=== PATIENT | male | born 1980 | race Caucasian/White ===

== ENCOUNTER 2019-06-26 04:20 | Inpatient (IN) ==
[2019-06-26] MEDS ORDERED: ALUM/MAG/SIMETH/LIDO VISC 1:1 30 ML BOTTLE PO STA (04:34)
[2019-06-26] MEDS ORDERED: HYDROmorphone 2 MG/1 ML VIAL IV STA (04:34)
[2019-06-26] MEDS ORDERED: SODIUM CHLORIDE 0.9% 1,000 ML IV STA (04:34)
[2019-06-26] MEDS ORDERED: ONDANSETRON 4 MG/2 ML VIAL IV STA (04:34)
[2019-06-26] MEDS ORDERED: PANTOPRAZOLE 40 MG VIAL IV STA (04:34)
[2019-06-26 05:18] LABS: Basophils # 0.1 10*3/uL (0.0-0.2); Basophils % 0.5 % (0.0-0.8); Eosinophils # 0.1 10*3/uL (0.0-0.87); Eosinophils % 0.7 % (0.00-10.9); Hematocrit 41.3 VOL% (42.0-52.0); Hemoglobin 14.1 GM/DL (14.0-18.0); Immature Granulocytes % 0.1 %; Immature Granulocytes Absolute 0.01 #; Lymphocytes # 3.4 10*3/uL (1.4-4.0); Lymphocytes % 29.6 % (21.2-54.2); Mean Corpuscular HGB Conc 34.1 GM/DL (32-36); Mean Corpuscular Volume 84.5 FL (87-102); Mean Platelet Volume 9.6 FL (9.6-12.0); Monocytes % 7.3 % (1.7-12.7); Neutrophils % 61.8 % (38.7-73.9); Platelet Count 388 T/CUMM (130-400); Red Blood Count 4.89 MC/CUMM (3.8-5.5); Red Cell Distribution Width 14.5 % (9.3-17.3); White Blood Count 11.6 T/CUMM (4-12)
[2019-06-26] MEDS ORDERED: PIPERACILLIN/TAZOBACTAM 3,375 MG in SODIUM CHLORIDE 0.9% 100 ML IV STA (05:35)
[2019-06-26] MEDS ORDERED: ACETAMINOPHEN 325 MG TABLET PO PRN (06:16)
[2019-06-26] MEDS ORDERED: NICOTINE 21 MG/24 HR PATCH TRANSDERM PRN (06:16)
[2019-06-26] MEDS ORDERED: ALUMINUM/MAGNES/SIMETH MAX STR 30 ML UDCUP PO PRN (06:16)
[2019-06-26] MEDS ORDERED: diphenhydrAMINE CAP 25 MG CAPSULE PO PRN (06:16)
[2019-06-26] MEDS ORDERED: GLUCAGON 1 MG VIAL IM PRN (06:16)
[2019-06-26] MEDS ORDERED: guaiFENesin/DM ER 600-30 MG TABLET PO PRN (06:16)
[2019-06-26] MEDS ORDERED: hydrALAZINE 20 MG/1 ML VIAL IV PRN (06:16)
[2019-06-26] MEDS ORDERED: DEXTROSE 10% 250 ML BAG IV PRN (06:26)
[2019-06-26 07:59] LABS: Hepatitis B Core IgM Quant 0.13 Index; Hepatitis B Surface Ag Quant 0.15 Index; Hepatitis B Surface Ag Result Negative (Negative); Hepatitis C Virus Ab Quant 0.13 Index; Hepatitis C Virus Ab Result Negative (Negative)
[2019-06-26] MEDS: SODIUM CHLORIDE 0.9% 1,000 ML IV SCH ×3 (08:15→22:46)
[2019-06-26] MEDS: CIPROFLOXACIN INJ 400 MG in PREMIX 1 EACH IV SCH (08:16)
[2019-06-26 10:05] LABS: Troponin I 0.038 NG/ML (0.00-0.045)
[2019-06-26 10:14] LABS: Albumin 3.3 G/DL (3.4-5.0); Bilirubin,Direct 0.14 MG/DL (0.0-0.20); Bilirubin,Indirect 0.4 MG/DL (0.0-1.0); Bilirubin,Total 0.5 MG/DL (0.2-1.0); Total Protein 6.1 G/DL (6.4-8.3)
[2019-06-26] MEDS: ONDANSETRON 4 MG/2 ML VIAL IV PRN (13:57)
[2019-06-26] MEDS: MORPHINE 4 MG/1 ML VIAL IV PRN (14:00)
[2019-06-26 14:05] LABS: Apearance,Urine Slightly Hazy (Clear); Bilirubin,Urine Negative (Negative); Blood, Urine Negative (Negative); Glucose,Urine (UA) Negative (Negative); Ketones,Urine Negative (Negative); Nitrite,Urine Negative (Negative); Protein,Urine 30 MG/DL; RBC,Urine 1 /HPF (0-4); Urine Color Yellow (Yellow); Urine Specific Gravity 1.024 (1.001-1.035); Urine Urobilinogen < 2.0 EU/DL (0.2-1.0)
[2019-06-26 14:06] LABS: Mucus,Urine Occasional /LPF (Occasional); WBC,Urine 2 /HPF (0-6)
[2019-06-26] MEDS: metroNIDAZOLE INJ 500 MG in PREMIX 1 EACH IV SCH (17:00)
[2019-06-26 18:05] LABS: Albumin 3.1 G/DL (3.4-5.0); Bilirubin,Total 0.5 MG/DL (0.2-1.0); Calcium 8.4 MG/DL (8.5-10.1); Osmolality,Calculated 282.5 MOS/KG (273-304); Total Protein 6.6 G/DL (6.4-8.3)
[2019-06-26 21:12] LABS: Barbiturates Screen,Urine Negative (Negative); Benzodiazepines Screen,Urine Negative (Negative); Cannabinoid Screen,Urine Negative (Negative); Opiate Screen,Urine Positive (Negative); Phencyclidine Screen,Urine Negative (Negative)
[2019-06-27] MEDS: ONDANSETRON 4 MG/2 ML VIAL IV PRN ×4 (01:35→20:38)
[2019-06-27] MEDS: MORPHINE 4 MG/1 ML VIAL IV PRN ×4 (01:35→20:39)
[2019-06-27] MEDS: SODIUM CHLORIDE 0.9% 1,000 ML IV SCH ×4 (04:06→22:35)
[2019-06-27] MEDS: metroNIDAZOLE INJ 500 MG in PREMIX 1 EACH IV SCH ×2 (04:11→17:51)
[2019-06-27] MEDS: CIPROFLOXACIN INJ 400 MG in PREMIX 1 EACH IV SCH ×3 (10:13→22:35)
[2019-06-28] MEDS: MORPHINE 4 MG/1 ML VIAL IV PRN ×3 (03:11→22:54)
[2019-06-28] MEDS: ONDANSETRON 4 MG/2 ML VIAL IV PRN ×2 (03:11→22:56)
[2019-06-28] MEDS: metroNIDAZOLE INJ 500 MG in PREMIX 1 EACH IV SCH ×2 (04:08→16:33)
[2019-06-28] MEDS: SODIUM CHLORIDE 0.9% 1,000 ML IV SCH ×3 (05:33→23:53)
[2019-06-28 06:51] LABS: Basophils % 0.5 % (0.0-0.8); Eosinophils # 0.1 10*3/uL (0.0-0.87); Eosinophils % 0.6 % (0.00-10.9); Hematocrit 42.4 VOL% (42.0-52.0); Hemoglobin 13.6 GM/DL (14.0-18.0); Immature Granulocytes % 0.5 %; Immature Granulocytes Absolute 0.04 #; Lymphocytes # 2.4 10*3/uL (1.4-4.0); Lymphocytes % 27.9 % (21.2-54.2); Mean Corpuscular HGB Conc 32.1 GM/DL (32-36); Mean Corpuscular Volume 89.5 FL (87-102); Mean Platelet Volume 10.2 FL (9.6-12.0); Monocytes % 8.8 % (1.7-12.7); Neutrophils % 61.7 % (38.7-73.9); Platelet Count 383 T/CUMM (130-400); Red Blood Count 4.74 MC/CUMM (3.8-5.5); Red Cell Distribution Width 15.5 % (9.3-17.3); White Blood Count 8.8 T/CUMM (4-12)
[2019-06-28 07:13] LABS: Calcium 8.3 MG/DL (8.5-10.1); Osmolality,Calculated 281.5 MOS/KG (273-304)
[2019-06-28] MEDS: CIPROFLOXACIN INJ 400 MG in PREMIX 1 EACH IV SCH ×2 (12:49→22:54)
[2019-06-28] MEDS ORDERED: FUROSEMIDE 20 MG/2 ML VIAL IV ONE (16:05)
[2019-06-29] MEDS: metroNIDAZOLE INJ 500 MG in PREMIX 1 EACH IV SCH ×2 (04:35→16:20)
[2019-06-29 05:39] LABS: Basophils # 0.1 10*3/uL (0.0-0.2); Basophils % 0.5 % (0.0-0.8); Eosinophils # 0.1 10*3/uL (0.0-0.87); Eosinophils % 0.7 % (0.00-10.9); Hematocrit 43.1 VOL% (42.0-52.0); Hemoglobin 14.1 GM/DL (14.0-18.0); Immature Granulocytes % 0.3 %; Immature Granulocytes Absolute 0.03 #; Lymphocytes # 3.1 10*3/uL (1.4-4.0); Lymphocytes % 31.2 % (21.2-54.2); Mean Corpuscular HGB Conc 32.7 GM/DL (32-36); Mean Corpuscular Volume 87.8 FL (87-102); Monocytes % 11.3 % (1.7-12.7); Platelet Count 392 T/CUMM (130-400); Red Blood Count 4.91 MC/CUMM (3.8-5.5); Red Cell Distribution Width 15.6 % (9.3-17.3); White Blood Count 9.9 T/CUMM (4-12)
[2019-06-29 06:28] LABS: Calcium 8.5 MG/DL (8.5-10.1); Osmolality,Calculated 276.7 MOS/KG (273-304)
[2019-06-29] MEDS: ONDANSETRON 4 MG/2 ML VIAL IV PRN ×2 (09:28→19:31)
[2019-06-29] MEDS: MORPHINE 4 MG/1 ML VIAL IV PRN ×2 (09:30→19:29)
[2019-06-29] MEDS ORDERED: FUROSEMIDE 40 MG/4 ML VIAL IV ONE (13:55)
[2019-06-29] MEDS: CIPROFLOXACIN INJ 400 MG in PREMIX 1 EACH IV SCH (14:00)
[2019-06-29] MEDS: carvediloL 6.25 MG TABLET PO SCH ×2 (14:25→21:12)
[2019-06-29] MEDS: ASPIRIN EC 81 MG TABLET PO SCH (14:25)
[2019-06-29 16:13] LABS: Troponin I < 0.015 NG/ML (0.00-0.045)
[2019-06-29] MEDS: NITROGLYCERIN SL 0.4 MG TABLET SL PRN ×2 (19:15→19:20)
[2019-06-29 20:43] LABS: Troponin I < 0.015 NG/ML (0.00-0.045)
[2019-06-30] MEDS: CIPROFLOXACIN INJ 400 MG in PREMIX 1 EACH IV SCH ×2 (00:23→10:30)
[2019-06-30] MEDS: ONDANSETRON 4 MG/2 ML VIAL IV PRN ×2 (01:30→11:14)
[2019-06-30] MEDS: MORPHINE 4 MG/1 ML VIAL IV PRN (01:43)
[2019-06-30] MEDS ORDERED: ASPIRIN CHEW 81 MG TABLET PO ONE (02:03)
[2019-06-30 02:17] LABS: Basophils # 0.1 10*3/uL (0.0-0.2); Basophils % 0.5 % (0.0-0.8); Eosinophils # 0.1 10*3/uL (0.0-0.87); Eosinophils % 1.1 % (0.00-10.9); Hemoglobin 13.7 GM/DL (14.0-18.0); Immature Granulocytes % 0.2 %; Immature Granulocytes Absolute 0.02 #; Lymphocytes # 2.8 10*3/uL (1.4-4.0); Lymphocytes % 28.8 % (21.2-54.2); Mean Corpuscular HGB Conc 32.6 GM/DL (32-36); Mean Corpuscular Volume 87.5 FL (87-102); Mean Platelet Volume 9.5 FL (9.6-12.0); Monocytes % 10.6 % (1.7-12.7); Neutrophils % 58.8 % (38.7-73.9); Platelet Count 385 T/CUMM (130-400); Red Cell Distribution Width 15.8 % (9.3-17.3); White Blood Count 9.6 T/CUMM (4-12)
[2019-06-30 02:30] LABS: Calcium 8.6 MG/DL (8.5-10.1); Osmolality,Calculated 270.2 MOS/KG (273-304)
[2019-06-30] MEDS ORDERED: FUROSEMIDE 20 MG/2 ML VIAL IV ONE (02:35)
[2019-06-30 02:38] LABS: Risk Ratio 5.43; VLDL CHOLESTEROL 15.8 MG/DL
[2019-06-30] MEDS ORDERED: ENOXAPARIN 40 MG/0.4 ML SYRINGE SUBCUT ONE (03:00)
[2019-06-30] MEDS: metroNIDAZOLE INJ 500 MG in PREMIX 1 EACH IV SCH ×2 (03:51→16:12)
[2019-06-30] MEDS ORDERED: FUROSEMIDE 40 MG/4 ML VIAL IV SCH (09:00)
[2019-06-30] MEDS ORDERED: LOSARTAN 25 MG TABLET PO SCH (09:00)
[2019-06-30] MEDS: PANTOPRAZOLE 40 MG TABLET PO SCH (10:10)
[2019-06-30] MEDS: carvediloL 6.25 MG TABLET PO SCH (10:10)
[2019-06-30] MEDS: ASPIRIN EC 81 MG TABLET PO SCH (10:10)
[2019-06-30] MEDS: ACETAMINOPHEN 325 MG TABLET PO SCH ×2 (11:13→20:36)
[2019-06-30 14:27] LABS: Troponin I < 0.015 NG/ML (0.00-0.045)
[2019-06-30] MEDS: GABAPENTIN 100 MG CAPSULE PO SCH ×2 (16:08→20:36)
[2019-06-30] MEDS: FUROSEMIDE 40 MG/4 ML VIAL IV SCH (16:08)
[2019-06-30] MEDS: ENOXAPARIN 40 MG/0.4 ML SYRINGE SUBCUT SCH (20:36)
[2019-06-30] MEDS: carvediloL 3.125 MG TABLET PO SCH (20:36)
[2019-06-30] MEDS ORDERED: ALUM/MAG/SIMETH/LIDO VISC 1:1 30 ML BOTTLE PO ONE (21:05)
[2019-06-30] MEDS ORDERED: GABAPENTIN 100 MG CAPSULE PO ONE (21:07)
[2019-07-01] MEDS: CIPROFLOXACIN INJ 400 MG in PREMIX 1 EACH IV SCH ×3 (00:16→23:04)
[2019-07-01 00:37] LABS: Troponin I < 0.015 NG/ML (0.00-0.045)
[2019-07-01] MEDS: metroNIDAZOLE INJ 500 MG in PREMIX 1 EACH IV SCH ×2 (05:40→16:47)
[2019-07-01 06:06] LABS: Basophils # 0.1 10*3/uL (0.0-0.2); Basophils % 0.6 % (0.0-0.8); Eosinophils # 0.1 10*3/uL (0.0-0.87); Eosinophils % 1.1 % (0.00-10.9); Hematocrit 41.8 VOL% (42.0-52.0); Hemoglobin 13.7 GM/DL (14.0-18.0); Immature Granulocytes % 0.2 %; Immature Granulocytes Absolute 0.02 #; Lymphocytes # 2.1 10*3/uL (1.4-4.0); Lymphocytes % 25.9 % (21.2-54.2); Mean Corpuscular HGB Conc 32.8 GM/DL (32-36); Mean Corpuscular Volume 87.1 FL (87-102); Mean Platelet Volume 9.7 FL (9.6-12.0); Monocytes % 11.6 % (1.7-12.7); Neutrophils % 60.6 % (38.7-73.9); Platelet Count 367 T/CUMM (130-400); Red Cell Distribution Width 15.5 % (9.3-17.3); White Blood Count 8.2 T/CUMM (4-12)
[2019-07-01 06:21] LABS: Calcium 8.9 MG/DL (8.5-10.1); Osmolality,Calculated 272.1 MOS/KG (273-304)
[2019-07-01 06:25] LABS: Osmolality,Calculated 275.8 MOS/KG (273-304)
[2019-07-01] MEDS: FUROSEMIDE 40 MG/4 ML VIAL IV SCH ×2 (08:39→16:46)
[2019-07-01] MEDS: GABAPENTIN 100 MG CAPSULE PO SCH ×3 (08:39→21:34)
[2019-07-01] MEDS: PANTOPRAZOLE 40 MG TABLET PO SCH (08:40)
[2019-07-01] MEDS: ACETAMINOPHEN 325 MG TABLET PO SCH ×2 (08:40→21:34)
[2019-07-01] MEDS: ASPIRIN EC 81 MG TABLET PO SCH (08:40)
[2019-07-01] MEDS: carvediloL 3.125 MG TABLET PO SCH (08:40)
[2019-07-01] MEDS ORDERED: MAGNESIUM CITRATE 300 ML BOTTLE PO PRN (12:16)
[2019-07-01] MEDS: carvediloL 6.25 MG TABLET PO SCH ×2 (17:40→21:34)
[2019-07-01] MEDS: ENOXAPARIN 40 MG/0.4 ML SYRINGE SUBCUT SCH (21:34)
[2019-07-02] MEDS: metroNIDAZOLE INJ 500 MG in PREMIX 1 EACH IV SCH ×2 (05:20→17:32)
[2019-07-02 06:18] LABS: Basophils # 0.1 10*3/uL (0.0-0.2); Basophils % 0.5 % (0.0-0.8); Eosinophils # 0.1 10*3/uL (0.0-0.87); Eosinophils % 1.3 % (0.00-10.9); Hematocrit 42.8 VOL% (42.0-52.0); Hemoglobin 13.9 GM/DL (14.0-18.0); Immature Granulocytes % 0.3 %; Immature Granulocytes Absolute 0.03 #; Lymphocytes # 2.4 10*3/uL (1.4-4.0); Lymphocytes % 25.6 % (21.2-54.2); Mean Corpuscular HGB Conc 32.5 GM/DL (32-36); Mean Corpuscular Volume 89.2 FL (87-102); Mean Platelet Volume 9.8 FL (9.6-12.0); Monocytes % 12.7 % (1.7-12.7); Neutrophils % 59.6 % (38.7-73.9); Platelet Count 324 T/CUMM (130-400); Red Cell Distribution Width 15.6 % (9.3-17.3); White Blood Count 9.2 T/CUMM (4-12)
[2019-07-02 06:45] LABS: Calcium 8.4 MG/DL (8.5-10.1); Osmolality,Calculated 281.5 MOS/KG (273-304)
[2019-07-02] MEDS: FUROSEMIDE 40 MG/4 ML VIAL IV SCH (08:25)
[2019-07-02] MEDS: PANTOPRAZOLE 40 MG TABLET PO SCH (08:25)
[2019-07-02] MEDS: carvediloL 6.25 MG TABLET PO SCH ×2 (08:25→17:32)
[2019-07-02] MEDS: ASPIRIN EC 81 MG TABLET PO SCH (08:25)
[2019-07-02] MEDS: GABAPENTIN 100 MG CAPSULE PO SCH ×3 (08:25→21:17)
[2019-07-02] MEDS: ACETAMINOPHEN 325 MG TABLET PO SCH ×2 (08:25→21:16)
[2019-07-02] MEDS: CIPROFLOXACIN INJ 400 MG in PREMIX 1 EACH IV SCH (11:59)
[2019-07-02 13:16] LABS: INR 1.2
[2019-07-02 16:50] LABS: Amylase,Body Fluid 19 U/L; LDH,Body Fluid 111 U/L; Triglycerides,Body Fluid < 14 MG/DL
[2019-07-02 17:17] LABS: Lymphocytes,Pleural Fluid 97 %; Neutrophils,Pleural Fluid 3 %; RBC,Pleural Fluid 3183 T/CUMM
[2019-07-02] MEDS: FUROSEMIDE 80 MG TABLET PO SCH (18:14)
[2019-07-02] MEDS: ENOXAPARIN 40 MG/0.4 ML SYRINGE SUBCUT SCH (21:16)
[2019-07-02] MEDS: buPROPion 75 MG TABLET PO SCH (21:16)
[2019-07-03] MEDS: CIPROFLOXACIN INJ 400 MG in PREMIX 1 EACH IV SCH (01:07)
[2019-07-03] MEDS: metroNIDAZOLE INJ 500 MG in PREMIX 1 EACH IV SCH (04:46)
[2019-07-03 04:55] LABS: Calcium 8.8 MG/DL (8.5-10.1); Osmolality,Calculated 271.2 MOS/KG (273-304)
[2019-07-03] MEDS: ACETAMINOPHEN 325 MG TABLET PO SCH (08:54)
[2019-07-03] MEDS: buPROPion 75 MG TABLET PO SCH (08:54)
[2019-07-03] MEDS: ASPIRIN EC 81 MG TABLET PO SCH (08:54)
[2019-07-03] MEDS: carvediloL 6.25 MG TABLET PO SCH ×2 (08:54→09:08)
[2019-07-03] MEDS: GABAPENTIN 100 MG CAPSULE PO SCH (08:55)
[2019-07-03] MEDS: PANTOPRAZOLE 40 MG TABLET PO SCH (08:55)
[2019-07-03] MEDS: FUROSEMIDE 80 MG TABLET PO SCH ×2 (08:55→09:09)
[2019-07-03 09:29] VITALS: BP 104/78
== END 2019-07-03 10:34 | disposition home health service (06) | DRG 292 ==
LOC: SUATTDRO → N.ED 04:20 → N.EDINP 04:20 → SUATTDRO 06:16 → N.EDINP 09:15 → N.2E 10:03
PROVIDERS: ADMIT Internal Medicine; ATTEND Family Medicine

== ENCOUNTER 2019-08-02 00:40 | Inpatient (IN) ==
[2019-08-02] MEDS ORDERED: ASPIRIN 325 MG TABLET PO STA (01:25)
[2019-08-02] MEDS ORDERED: ONDANSETRON 4 MG/2 ML VIAL IV STA (01:25)
[2019-08-02] MEDS ORDERED: ALUM/MAG/SIMETH/LIDO VISC 1:1 30 ML BOTTLE PO STA (01:25)
[2019-08-02] MEDS ORDERED: FUROSEMIDE 40 MG/4 ML VIAL IV STA (01:25)
[2019-08-02] MEDS ORDERED: NITROGLYCERIN 2% OINT 1 INCH/GM PACK TOP STA (01:25)
[2019-08-02 01:44] LABS: Basophils # 0.1 10*3/uL (0.0-0.2); Basophils % 0.7 % (0.0-0.8); Eosinophils # 0.1 10*3/uL (0.0-0.87); Eosinophils % 1.1 % (0.00-10.9); Hemoglobin 16.4 GM/DL (14.0-18.0); Immature Granulocytes % 0.4 %; Immature Granulocytes Absolute 0.05 #; Lymphocytes # 3.2 10*3/uL (1.4-4.0); Lymphocytes % 26.6 % (21.2-54.2); Mean Corpuscular HGB Conc 31.5 GM/DL (32-36); Mean Platelet Volume 9.5 FL (9.6-12.0); Monocytes % 9.1 % (1.7-12.7); Neutrophils % 62.1 % (38.7-73.9); Platelet Count 350 T/CUMM (130-400); Red Blood Count 5.84 MC/CUMM (3.8-5.5); Red Cell Distribution Width 15.1 % (9.3-17.3); White Blood Count 12.2 T/CUMM (4-12)
[2019-08-02 01:57] LABS: Calcium 9.4 MG/DL (8.5-10.1); Osmolality,Calculated 279.7 MOS/KG (273-304); Total Protein 8.3 G/DL (6.4-8.3)
[2019-08-02] MEDS ORDERED: FUROSEMIDE 20 MG/2 ML VIAL IM STA (02:01)
[2019-08-02] MEDS ORDERED: FUROSEMIDE 20 MG/2 ML VIAL IV STA (02:02)
[2019-08-02] MEDS ORDERED: ENOXAPARIN 100 MG/ML SYRINGE SUBCUT STA (02:16)
[2019-08-02 02:30] LABS: Apearance,Urine CLEAR (Clear); Bilirubin,Urine Negative (Negative); Blood, Urine Negative (Negative); Glucose,Urine (UA) Negative (Negative); Hyaline Casts,Urine 4 /LPF (0-3); Ketones,Urine Negative (Negative); Mucus,Urine Few /LPF (Occasional); Nitrite,Urine Negative (Negative); Protein,Urine 30 MG/DL; RBC,Urine <1 /HPF (0-4); Urine Color Amber (Yellow); Urine Specific Gravity 1.021 (1.001-1.035); WBC,Urine 1 /HPF (0-6)
[2019-08-02] MEDS ORDERED: PROMETHAZINE 25 MG/1 ML VIAL ONE (03:10)
[2019-08-02] MEDS ORDERED: PROMETHAZINE 25 MG/1 ML VIAL IM STA (03:17)
[2019-08-02 03:21] LABS: Barbiturates Screen,Urine Negative (Negative); Benzodiazepines Screen,Urine Negative (Negative); Cannabinoid Screen,Urine Positive (Negative); Opiate Screen,Urine Negative (Negative); Phencyclidine Screen,Urine Negative (Negative)
[2019-08-02] MEDS ORDERED: DOCUSATE SODIUM 100 MG CAPSULE PO PRN (05:48)
[2019-08-02] MEDS ORDERED: NICOTINE 21 MG/24 HR PATCH TRANSDERM PRN (05:48)
[2019-08-02] MEDS ORDERED: PROMETHAZINE 25 MG/1 ML VIAL IM PRN (05:48)
[2019-08-02] MEDS ORDERED: ACETAMINOPHEN 325 MG TABLET PO PRN (05:48)
[2019-08-02] MEDS: ONDANSETRON 4 MG/2 ML VIAL IV PRN ×2 (05:57→17:29)
[2019-08-02] MEDS ORDERED: ASPIRIN EC 81 MG TABLET PO SCH (09:00)
[2019-08-02 09:12] LABS: INR 1.1; PT Patient Result 12.1 SECS (9.8-11.9)
[2019-08-02] MEDS: FUROSEMIDE 40 MG/4 ML VIAL IV SCH ×2 (09:37→15:35)
[2019-08-02] MEDS: PANTOPRAZOLE 40 MG TABLET PO SCH (09:38)
[2019-08-02] MEDS: buPROPion 75 MG TABLET PO SCH ×2 (10:12→21:33)
[2019-08-02 11:51] LABS: ABG Base Excess 0.4 MMOL/L (-2.5-2.5); ABG HCO3 24.2 MMOL/L (20-26); ABG Oxygen Saturation 74.1 % (95-100); ABG PCO2 37.7 MM HG (35-48); ABG PH 7.422 (7.35-7.45); ABG PO2 41.5 MM HG (80-95); ABG TCO2 20.8 MMOL/L (23-27)
[2019-08-02] MEDS ORDERED: BISOPROLOL 5 MG TABLET PO SCH (12:08)
[2019-08-02] MEDS: BISOPROLOL 5 MG TABLET PO SCH ×2 (15:35→21:33)
[2019-08-03] MEDS: ONDANSETRON 4 MG/2 ML VIAL IV PRN ×2 (05:55→08:33)
[2019-08-03 06:42] LABS: Basophils # 0.1 10*3/uL (0.0-0.2); Basophils % 0.4 % (0.0-0.8); Eosinophils % 0.1 % (0.00-10.9); Hematocrit 53.2 VOL% (42.0-52.0); Hemoglobin 17.1 GM/DL (14.0-18.0); Immature Granulocytes % 0.3 %; Immature Granulocytes Absolute 0.04 #; Lymphocytes # 2.7 10*3/uL (1.4-4.0); Lymphocytes % 18.4 % (21.2-54.2); Mean Corpuscular HGB Conc 32.1 GM/DL (32-36); Mean Corpuscular Volume 87.5 FL (87-102); Monocytes % 9.7 % (1.7-12.7); Neutrophils % 71.1 % (38.7-73.9); Platelet Count 234 T/CUMM (130-400); Red Blood Count 6.08 MC/CUMM (3.8-5.5); Red Cell Distribution Width 15.5 % (9.3-17.3); White Blood Count 14.5 T/CUMM (4-12)
[2019-08-03] MEDS: buPROPion 75 MG TABLET PO SCH ×2 (08:33→21:32)
[2019-08-03] MEDS: ASPIRIN EC 81 MG TABLET PO SCH (08:33)
[2019-08-03] MEDS: PANTOPRAZOLE 40 MG TABLET PO SCH (08:34)
[2019-08-03] MEDS: BISOPROLOL 5 MG TABLET PO SCH ×3 (08:34→21:32)
[2019-08-03] MEDS: FUROSEMIDE 40 MG/4 ML VIAL IV SCH (08:35)
[2019-08-03] MEDS: ENOXAPARIN 40 MG/0.4 ML SYRINGE SUBCUT SCH (08:35)
[2019-08-03 09:36] LABS: Calcium 9.7 MG/DL (8.5-10.1); Osmolality,Calculated 275.5 MOS/KG (273-304)
[2019-08-03] MEDS: SODIUM CHLORIDE 0.45% 1,000 ML IV SCH (12:16)
[2019-08-03] MEDS: SUCRALFATE 1 GM/10 ML UDCUP PO SCH ×3 (12:16→21:32)
[2019-08-03 15:12] LABS: Calcium 9.6 MG/DL (8.5-10.1); Osmolality,Calculated 270.8 MOS/KG (273-304)
[2019-08-04 03:46] LABS: Basophils # 0.1 10*3/uL (0.0-0.2); Basophils % 0.5 % (0.0-0.8); Eosinophils % 0.3 % (0.00-10.9); Hematocrit 45.2 VOL% (42.0-52.0); Hemoglobin 14.9 GM/DL (14.0-18.0); Immature Granulocytes % 0.2 %; Immature Granulocytes Absolute 0.02 #; Lymphocytes # 2.7 10*3/uL (1.4-4.0); Lymphocytes % 27.2 % (21.2-54.2); Mean Platelet Volume 10.4 FL (9.6-12.0); Monocytes % 11.3 % (1.7-12.7); Neutrophils % 60.5 % (38.7-73.9); Platelet Count 282 T/CUMM (130-400); Red Blood Count 5.32 MC/CUMM (3.8-5.5); Red Cell Distribution Width 14.8 % (9.3-17.3); White Blood Count 9.9 T/CUMM (4-12)
[2019-08-04 04:01] LABS: Osmolality,Calculated 275.4 MOS/KG (273-304)
[2019-08-04 04:05] LABS: Albumin 3.4 G/DL (3.4-5.0); Bilirubin,Direct 0.68 MG/DL (0.0-0.20); Bilirubin,Indirect 2.2 MG/DL (0.0-1.0); Bilirubin,Total 2.9 MG/DL (0.2-1.0); Total Protein 6.9 G/DL (6.4-8.3)
[2019-08-04] MEDS: ASPIRIN EC 81 MG TABLET PO SCH (09:21)
[2019-08-04] MEDS: SODIUM CHLORIDE 0.45% 1,000 ML IV SCH (09:21)
[2019-08-04] MEDS: PANTOPRAZOLE 40 MG TABLET PO SCH (09:21)
[2019-08-04] MEDS: SUCRALFATE 1 GM/10 ML UDCUP PO SCH ×4 (09:22→21:02)
[2019-08-04] MEDS: BISOPROLOL 5 MG TABLET PO SCH (09:22)
[2019-08-04] MEDS: buPROPion 75 MG TABLET PO SCH ×2 (09:22→21:02)
[2019-08-04] MEDS: ENOXAPARIN 40 MG/0.4 ML SYRINGE SUBCUT SCH (09:23)
[2019-08-04] MEDS: cefTRIAXone 2,000 MG in SYRINGE 1 EACH IV SCH (14:54)
[2019-08-04] MEDS: ONDANSETRON 4 MG/2 ML VIAL IV PRN (22:10)
[2019-08-05] MEDS ORDERED: PROMETHAZINE INJ 12.5 MG in SODIUM CHLORIDE 0.9% 50 ML IV ONE (00:29)
[2019-08-05 06:29] LABS: Basophils % 0.4 % (0.0-0.8); Eosinophils % 0.1 % (0.00-10.9); Hemoglobin 14.5 GM/DL (14.0-18.0); Immature Granulocytes % 0.4 %; Immature Granulocytes Absolute 0.04 #; Lymphocytes # 2.2 10*3/uL (1.4-4.0); Lymphocytes % 20.4 % (21.2-54.2); Mean Corpuscular HGB Conc 32.2 GM/DL (32-36); Mean Platelet Volume 10.2 FL (9.6-12.0); Monocytes % 9.5 % (1.7-12.7); Neutrophils % 69.2 % (38.7-73.9); Platelet Count 298 T/CUMM (130-400); Red Blood Count 5.17 MC/CUMM (3.8-5.5); Red Cell Distribution Width 15.1 % (9.3-17.3); White Blood Count 10.8 T/CUMM (4-12)
[2019-08-05 06:42] LABS: Osmolality,Calculated 268.8 MOS/KG (273-304)
[2019-08-05] MEDS: BISOPROLOL 5 MG TABLET PO SCH (09:01)
[2019-08-05] MEDS: SUCRALFATE 1 GM/10 ML UDCUP PO SCH ×4 (09:01→20:53)
[2019-08-05] MEDS: ASPIRIN EC 81 MG TABLET PO SCH (09:02)
[2019-08-05] MEDS: buPROPion 75 MG TABLET PO SCH ×2 (09:02→20:53)
[2019-08-05] MEDS: PANTOPRAZOLE 40 MG TABLET PO SCH (09:02)
[2019-08-05] MEDS: ENOXAPARIN 40 MG/0.4 ML SYRINGE SUBCUT SCH (09:04)
[2019-08-05] MEDS: cefTRIAXone 2,000 MG in SYRINGE 1 EACH IV SCH (12:14)
[2019-08-06 05:25] LABS: Basophils # 0.1 10*3/uL (0.0-0.2); Basophils % 0.5 % (0.0-0.8); Eosinophils % 0.4 % (0.00-10.9); Hematocrit 46.6 VOL% (42.0-52.0); Hemoglobin 15.3 GM/DL (14.0-18.0); Immature Granulocytes % 0.3 %; Immature Granulocytes Absolute 0.03 #; Lymphocytes # 2.5 10*3/uL (1.4-4.0); Lymphocytes % 25.6 % (21.2-54.2); Mean Corpuscular HGB Conc 32.8 GM/DL (32-36); Mean Corpuscular Volume 86.1 FL (87-102); Mean Platelet Volume 10.3 FL (9.6-12.0); Monocytes % 10.2 % (1.7-12.7); Platelet Count 281 T/CUMM (130-400); Red Blood Count 5.41 MC/CUMM (3.8-5.5); Red Cell Distribution Width 15.9 % (9.3-17.3); White Blood Count 9.8 T/CUMM (4-12)
[2019-08-06 05:44] LABS: Osmolality,Calculated 275.2 MOS/KG (273-304)
[2019-08-06 06:36] LABS: Hepatitis B Core IgM Quant 0.17 Index; Hepatitis B Surface Ag Quant 0.39 Index; Hepatitis B Surface Ag Result Negative (Negative); Hepatitis C Virus Ab Quant 0.13 Index; Hepatitis C Virus Ab Result Negative (Negative)
[2019-08-06] MEDS: SUCRALFATE 1 GM/10 ML UDCUP PO SCH ×2 (07:38→10:55)
[2019-08-06] MEDS: LACTATED RINGERS 1,000 ML IV SCH ×2 (07:39→09:42)
[2019-08-06] MEDS: ENOXAPARIN 40 MG/0.4 ML SYRINGE SUBCUT SCH (08:29)
[2019-08-06] MEDS: PANTOPRAZOLE 40 MG TABLET PO SCH (08:30)
[2019-08-06] MEDS: buPROPion 75 MG TABLET PO SCH (08:30)
[2019-08-06] MEDS: BISOPROLOL 5 MG TABLET PO SCH ×2 (08:30→13:51)
[2019-08-06] MEDS ORDERED: propofoL 200 MG/20 ML VIAL IV ONE (09:00)
[2019-08-06] MEDS ORDERED: LIDOCAINE 2% 5 ML VIAL ONE (09:00)
[2019-08-06 09:24] VITALS: BP 111/86
[2019-08-06] MEDS: cefTRIAXone 2,000 MG in SYRINGE 1 EACH IV SCH (11:38)
[2019-08-06] MEDS ORDERED: FUROSEMIDE 40 MG/4 ML VIAL IV ONE (12:45)
[2019-08-06] MEDS: ONDANSETRON 4 MG/2 ML VIAL IV PRN (13:26)
== END 2019-08-06 15:05 | disposition home or self-care (01) | DRG 291 ==
LOC: N.ED 00:40 → N.EDINP 03:19 → SUATTDRO 03:19 → N.TELEN 14:51
PROVIDERS: ADMIT Family Medicine; ATTEND Internal Medicine

== ENCOUNTER 2019-10-16 20:42 | Inpatient (IN) ==
[2019-10-16 21:39] LABS: Basophils # 0.1 10*3/uL (0.0-0.2); Basophils % 0.7 % (0.0-0.8); Eosinophils % 0.2 % (0.00-10.9); Hematocrit 45.5 VOL% (42.0-52.0); Hemoglobin 15.2 GM/DL (14.0-18.0); Immature Granulocytes % 0.2 %; Immature Granulocytes Absolute 0.02 #; Lymphocytes # 2.7 10*3/uL (1.4-4.0); Lymphocytes % 27.1 % (21.2-54.2); Mean Corpuscular HGB Conc 33.4 GM/DL (32-36); Mean Corpuscular Volume 82.7 FL (87-102); Mean Platelet Volume 9.3 FL (9.6-12.0); Monocytes % 10.3 % (1.7-12.7); Neutrophils % 61.5 % (38.7-73.9); Platelet Count 307 T/CUMM (130-400); White Blood Count 10.1 T/CUMM (4-12)
[2019-10-16] MEDS ORDERED: ONDANSETRON 4 MG/2 ML VIAL IV STA (21:47)
[2019-10-16 22:04] LABS: Alanine Aminotransferase 57 U/L (16-61); Albumin 4.1 G/DL (3.4-5.0); Alkaline Phosphatase 127 U/L (45-117); Amylase 120 U/L (25-115); Aspartate Amino Transferase 67 U/L (0-37); Blood Urea Nitrogen 20 MG/DL (7-18); Calcium 9.7 MG/DL (8.5-10.1); Estimated Glom Filtration Rate 43 ML/MIN; Glucose 132 MG/DL (74-106); Osmolality,Calculated 268.5 MOS/KG (273-304); Total Protein 8.2 G/DL (6.4-8.3); Troponin I < 0.015 NG/ML (0.00-0.045)
[2019-10-16] MEDS ORDERED: SODIUM CHLORIDE 0.9% 1,000 ML IV STA (22:17)
[2019-10-16 22:20] LABS: INR 1.4; PT Patient Result 14.7 SECS (9.8-11.9)
[2019-10-16] MEDS ORDERED: PANTOPRAZOLE 40 MG VIAL IV STA (22:20)
[2019-10-16] MEDS ORDERED: METOCLOPRAMIDE 10 MG/2 ML VIAL IV STA (22:20)
[2019-10-16 22:42] LABS: Apearance,Urine Slightly Hazy (Clear); Blood, Urine Negative (Negative); Glucose,Urine (UA) Negative (Negative); Hyaline Casts,Urine 162 /LPF (0-3); Ketones,Urine Negative (Negative); Mucus,Urine Occasional /LPF (Occasional); Nitrite,Urine Negative (Negative); Protein,Urine 30 MG/DL; RBC,Urine 5 /HPF (0-4); Urine Color Amber (Yellow); Urine Specific Gravity 1.017 (1.001-1.035)
[2019-10-16 22:44] LABS: Barbiturates Screen,Urine Negative (Negative); Benzodiazepines Screen,Urine Negative (Negative); Cannabinoid Screen,Urine Positive (Negative); Opiate Screen,Urine Negative (Negative); Phencyclidine Screen,Urine Negative (Negative)
[2019-10-16 23:02] LABS: Bilirubin,Urine Small mg/dL (Negative)
[2019-10-16] MEDS ORDERED: DEXTROSE 50% 25 GM/50 ML VIAL IV PRN (23:31)
[2019-10-16] MEDS ORDERED: diphenhydrAMINE CAP 25 MG CAPSULE PO PRN (23:31)
[2019-10-16] MEDS ORDERED: ZALEPLON 5 MG CAPSULE PO PRN (23:31)
[2019-10-16] MEDS ORDERED: NICOTINE 21 MG/24 HR PATCH TRANSDERM PRN (23:31)
[2019-10-16] MEDS ORDERED: GLUCAGON 1 MG VIAL IM PRN (23:31)
[2019-10-16] MEDS ORDERED: PROMETHAZINE 25 MG/1 ML VIAL IM PRN (23:31)
[2019-10-16] MEDS ORDERED: hydrALAZINE 20 MG/1 ML VIAL IV PRN (23:31)
[2019-10-16] MEDS ORDERED: guaiFENesin/DM ER 600-30 MG TABLET PO PRN (23:31)
[2019-10-16] MEDS ORDERED: SIMETHICONE CHEW 125 MG TABLET PO PRN (23:31)
[2019-10-16] MEDS ORDERED: ALUMINUM/MAGNES/SIMETH MAX STR 30 ML UDCUP PO PRN (23:31)
[2019-10-16] MEDS ORDERED: VANCOMYCIN INJ 1,000 MG in SODIUM CHLORIDE 0.9% 250 ML IV PRN (23:39)
[2019-10-17] MEDS ORDERED: VANCOMYCIN INJ 1,500 MG in SODIUM CHLORIDE 0.9% 500 ML IV ONE
[2019-10-17] MEDS: MORPHINE 4 MG/1 ML VIAL IV PRN ×3 (01:33→20:31)
[2019-10-17 01:46] LABS: Basophils # 0.1 10*3/uL (0.0-0.2); Basophils % 0.6 % (0.0-0.8); Eosinophils % 0.3 % (0.00-10.9); Hematocrit 44.2 VOL% (42.0-52.0); Hemoglobin 14.6 GM/DL (14.0-18.0); Immature Granulocytes % 0.3 %; Immature Granulocytes Absolute 0.03 #; Lymphocytes # 3.1 10*3/uL (1.4-4.0); Lymphocytes % 33.2 % (21.2-54.2); Mean Corpuscular Volume 82.2 FL (87-102); Mean Platelet Volume 9.3 FL (9.6-12.0); Monocytes % 9.6 % (1.7-12.7); Platelet Count 285 T/CUMM (130-400); Red Blood Count 5.38 MC/CUMM (3.8-5.5); Red Cell Distribution Width 18.6 % (9.3-17.3); White Blood Count 9.4 T/CUMM (4-12)
[2019-10-17] MEDS: PIPERACILLIN/TAZOBACTAM 3,375 MG in SODIUM CHLORIDE 0.9% 100 ML IV SCH ×4 (01:53→17:45)
[2019-10-17 02:26] LABS: Albumin 3.7 G/DL (3.4-5.0); Bilirubin,Total 3.1 MG/DL (0.2-1.0); Calcium 9.2 MG/DL (8.5-10.1); Osmolality,Calculated 264.7 MOS/KG (273-304); Total Protein 7.7 G/DL (6.4-8.3)
[2019-10-17] MEDS: PANTOPRAZOLE 40 MG VIAL IV SCH ×2 (09:04→20:30)
[2019-10-17] MEDS: DOCUSATE SODIUM 100 MG CAPSULE PO SCH ×2 (09:05→20:31)
[2019-10-17] MEDS: ENOXAPARIN 40 MG/0.4 ML SYRINGE SUBCUT SCH (09:05)
[2019-10-17] MEDS: FUROSEMIDE 100 MG/10 ML VIAL IV SCH ×3 (11:01→23:35)
[2019-10-17] MEDS: BISOPROLOL 5 MG TABLET PO SCH (13:02)
[2019-10-17] MEDS: ONDANSETRON 4 MG/2 ML VIAL IV PRN (20:31)
[2019-10-17] MEDS ORDERED: VANCOMYCIN INJ 1,250 MG in SODIUM CHLORIDE 0.9% 250 ML IV SCH (23:00)
[2019-10-18] MEDS: ONDANSETRON 4 MG/2 ML VIAL IV PRN ×4 (02:39→22:12)
[2019-10-18] MEDS: PIPERACILLIN/TAZOBACTAM 3,375 MG in SODIUM CHLORIDE 0.9% 100 ML IV SCH ×3 (02:39→17:58)
[2019-10-18] MEDS: MORPHINE 4 MG/1 ML VIAL IV PRN ×4 (02:57→22:23)
[2019-10-18 05:38] LABS: Basophils # 0.1 10*3/uL (0.0-0.2); Basophils % 0.7 % (0.0-0.8); Eosinophils % 0.2 % (0.00-10.9); Hematocrit 42.2 VOL% (42.0-52.0); Hemoglobin 13.9 GM/DL (14.0-18.0); Immature Granulocytes % 0.5 %; Immature Granulocytes Absolute 0.04 #; Lymphocytes # 2.5 10*3/uL (1.4-4.0); Lymphocytes % 28.6 % (21.2-54.2); Mean Corpuscular HGB Conc 32.9 GM/DL (32-36); Mean Corpuscular Volume 82.4 FL (87-102); Mean Platelet Volume 9.7 FL (9.6-12.0); Monocytes % 11.1 % (1.7-12.7); Neutrophils % 58.9 % (38.7-73.9); Platelet Count 286 T/CUMM (130-400); Red Blood Count 5.12 MC/CUMM (3.8-5.5); White Blood Count 8.7 T/CUMM (4-12)
[2019-10-18 05:51] LABS: Calcium 9.6 MG/DL (8.5-10.1); Osmolality,Calculated 270.4 MOS/KG (273-304)
[2019-10-18] MEDS ORDERED: FUROSEMIDE 40 MG/4 ML VIAL IV SCH (07:26)
[2019-10-18] MEDS: ENOXAPARIN 40 MG/0.4 ML SYRINGE SUBCUT SCH (09:39)
[2019-10-18] MEDS: BISOPROLOL 5 MG TABLET PO SCH (09:55)
[2019-10-18] MEDS: DOCUSATE SODIUM 100 MG CAPSULE PO SCH ×2 (09:55→21:39)
[2019-10-18] MEDS: PANTOPRAZOLE 40 MG VIAL IV SCH ×2 (10:37→21:39)
[2019-10-18] MEDS: GABAPENTIN 100 MG CAPSULE PO SCH ×2 (15:05→22:23)
[2019-10-18] MEDS: FUROSEMIDE 40 MG TABLET PO SCH (15:05)
[2019-10-19] MEDS: PIPERACILLIN/TAZOBACTAM 3,375 MG in SODIUM CHLORIDE 0.9% 100 ML IV SCH ×2 (02:11→09:48)
[2019-10-19] MEDS ORDERED: FUROSEMIDE 20 MG/2 ML VIAL IV ONE (02:30)
[2019-10-19] MEDS: MORPHINE 4 MG/1 ML VIAL IV PRN (04:55)
[2019-10-19] MEDS: ONDANSETRON 4 MG/2 ML VIAL IV PRN ×2 (04:57→09:48)
[2019-10-19 05:23] LABS: Basophils # 0.1 10*3/uL (0.0-0.2); Basophils % 0.6 % (0.0-0.8); Eosinophils % 0.4 % (0.00-10.9); Hematocrit 44.6 VOL% (42.0-52.0); Hemoglobin 14.6 GM/DL (14.0-18.0); Immature Granulocytes % 0.4 %; Immature Granulocytes Absolute 0.04 #; Lymphocytes # 2.5 10*3/uL (1.4-4.0); Lymphocytes % 26.5 % (21.2-54.2); Mean Corpuscular HGB Conc 32.7 GM/DL (32-36); Mean Corpuscular Volume 83.1 FL (87-102); Mean Platelet Volume 9.6 FL (9.6-12.0); Monocytes % 10.8 % (1.7-12.7); Neutrophils % 61.3 % (38.7-73.9); Platelet Count 322 T/CUMM (130-400); Red Blood Count 5.37 MC/CUMM (3.8-5.5); Red Cell Distribution Width 19.6 % (9.3-17.3); White Blood Count 9.6 T/CUMM (4-12)
[2019-10-19] MEDS: ENOXAPARIN 40 MG/0.4 ML SYRINGE SUBCUT SCH (08:31)
[2019-10-19] MEDS: FUROSEMIDE 40 MG TABLET PO SCH (08:32)
[2019-10-19] MEDS: DOCUSATE SODIUM 100 MG CAPSULE PO SCH ×2 (08:32→20:19)
[2019-10-19] MEDS: PANTOPRAZOLE 40 MG VIAL IV SCH (08:33)
[2019-10-19] MEDS: GABAPENTIN 100 MG CAPSULE PO SCH ×3 (08:33→20:19)
[2019-10-19] MEDS: BISOPROLOL 5 MG TABLET PO SCH (08:43)
[2019-10-19] MEDS ORDERED: ONDANSETRON 4 MG TABLET PO PRN (15:26)
[2019-10-19] MEDS: traMADol 50 MG TABLET PO PRN (16:46)
[2019-10-19] MEDS: cefTRIAXone 1,000 MG in SYRINGE 1 EACH IV SCH (16:47)
[2019-10-19] MEDS: FUROSEMIDE 40 MG/4 ML VIAL IV SCH (16:47)
[2019-10-19] MEDS ORDERED: ENOXAPARIN 40 MG/0.4 ML SYRINGE SUBCUT SCH (20:00)
[2019-10-20] MEDS: FUROSEMIDE 40 MG/4 ML VIAL IV SCH ×2 (07:55→16:55)
[2019-10-20] MEDS: AZITHROMYCIN 250 MG TABLET PO SCH (09:30)
[2019-10-20] MEDS: GABAPENTIN 100 MG CAPSULE PO SCH ×3 (09:35→21:02)
[2019-10-20] MEDS: BISOPROLOL 5 MG TABLET PO SCH (09:58)
[2019-10-20] MEDS: PANTOPRAZOLE 40 MG TABLET PO SCH (10:03)
[2019-10-20] MEDS: DOCUSATE SODIUM 100 MG CAPSULE PO SCH ×2 (10:04→21:02)
[2019-10-20] MEDS: ENOXAPARIN 40 MG/0.4 ML SYRINGE SUBCUT SCH (10:08)
[2019-10-20] MEDS: cefTRIAXone 1,000 MG in SYRINGE 1 EACH IV SCH (16:56)
[2019-10-20] MEDS ORDERED: APIXABAN 5 MG TABLET PO SCH (18:00)
[2019-10-21] MEDS: traMADol 50 MG TABLET PO PRN (04:23)
[2019-10-21] MEDS: PANTOPRAZOLE 40 MG TABLET PO SCH (09:17)
[2019-10-21] MEDS: AZITHROMYCIN 250 MG TABLET PO SCH (09:17)
[2019-10-21] MEDS: FUROSEMIDE 40 MG/4 ML VIAL IV SCH ×2 (09:17→15:12)
[2019-10-21] MEDS: GABAPENTIN 100 MG CAPSULE PO SCH ×2 (09:17→15:11)
[2019-10-21] MEDS: ENOXAPARIN 40 MG/0.4 ML SYRINGE SUBCUT SCH (09:18)
[2019-10-21] MEDS: ONDANSETRON 4 MG/2 ML VIAL IV PRN (09:18)
[2019-10-21] MEDS: DOCUSATE SODIUM 100 MG CAPSULE PO SCH (09:20)
[2019-10-21] MEDS: cefTRIAXone 1,000 MG in SYRINGE 1 EACH IV SCH (15:12)
[2019-10-21 16:25] VITALS: BP 110/74
== END 2019-10-21 16:35 | disposition home or self-care (01) | DRG 291 ==
LOC: N.ED 20:42 → N.EDINP 23:32 → SUATTDRO 23:32 → N.TELEN 10-17 00:45
PROVIDERS: ADMIT Internal Medicine; ATTEND Internal Medicine

== ENCOUNTER 2020-04-22 00:10 | Inpatient (IN) ==
[2020-04-22 00:39] LABS: Basophils % 0.1 % (0.0-0.8); Hemoglobin 14.1 GM/DL (14.0-18.0); Immature Granulocytes % 1.3 %; Immature Granulocytes Absolute 0.19 #; Lymphocytes # 2.5 10*3/uL (1.4-4.0); Lymphocytes % 16.4 % (21.2-54.2); Mean Corpuscular HGB Conc 33.6 GM/DL (32-36); Mean Platelet Volume 9.6 FL (9.6-12.0); Monocytes % 6.1 % (1.7-12.7); Neutrophils % 76.1 % (38.7-73.9); Platelet Count 386 T/CUMM (130-400); Red Blood Count 4.83 MC/CUMM (3.8-5.5); Red Cell Distribution Width 13.8 % (9.3-17.3); White Blood Count 15.2 T/CUMM (4-12)
[2020-04-22] MEDS ORDERED: methylPREDNISolone SOD SUC 125 MG/2 ML VIAL IV STA (00:40)
[2020-04-22] MEDS ORDERED: FUROSEMIDE 40 MG/4 ML VIAL IV STA (00:40)
[2020-04-22] MEDS ORDERED: ONDANSETRON 4 MG/2 ML VIAL IV STA (00:40)
[2020-04-22 00:53] LABS: Amylase 265 U/L (25-115)
[2020-04-22 00:53] LABS: Albumin 3.7 G/DL (3.4-5.0); Bilirubin,Total 1.3 MG/DL (0.2-1.0); Calcium 9.2 MG/DL (8.5-10.1); Osmolality,Calculated 278.4 MOS/KG (273-304); Potassium 3.7 MMOL/L (3.5-5.1); Total Protein 7.9 G/DL (5.0-7.5)
[2020-04-22] MEDS ORDERED: ALBUTEROL NEB SOLN 5 MG/ML 20 ML/BOTTLE CONT NEB SCH (01:00)
[2020-04-22 01:22] LABS: INR 1.2; PT Patient Result 12.7 SECS (9.8-11.9)
[2020-04-22] MEDS ORDERED: PIPERACILLIN/TAZOBACTAM 3,375 MG in SODIUM CHLORIDE 0.9% 100 ML IV STA (01:39)
[2020-04-22 01:44] LABS: Barbiturates Screen,Urine Negative (Negative); Benzodiazepines Screen,Urine Negative (Negative); Cannabinoid Screen,Urine Positive (Negative); Opiate Screen,Urine Positive (Negative); Phencyclidine Screen,Urine Negative (Negative)
[2020-04-22 01:49] LABS: Bilirubin,Urine Negative (Negative); Blood, Urine Negative (Negative); Glucose,Urine (UA) Negative (Negative); Hyaline Casts,Urine 1 /LPF (0-3); Ketones,Urine Negative (Negative); Nitrite,Urine Negative (Negative); Protein,Urine Negative; RBC,Urine 2 /HPF (0-4); Urine Appearance CLEAR (Clear); Urine Color Yellow (Yellow); Urine Specific Gravity 1.017 (1.001-1.035); WBC,Urine 1 /HPF (0-6)
[2020-04-22] MEDS ORDERED: MAGNESIUM SULF RIDER 4 GM in PREMIX 1 EACH IV PRN (02:26)
[2020-04-22] MEDS ORDERED: MAGNESIUM SULF RIDER 2 GM in PREMIX 1 EACH IV PRN (02:26)
[2020-04-22] MEDS ORDERED: GLUCAGON 1 MG VIAL IM PRN (02:26)
[2020-04-22] MEDS ORDERED: DEXTROSE 50% 25 GM/50 ML VIAL IV PRN (02:26)
[2020-04-22] MEDS: ENOXAPARIN 40 MG/0.4 ML SYRINGE SUBCUT SCH (02:54)
[2020-04-22 06:38] LABS: Basophils % 0.1 % (0.0-0.8); Hematocrit 43.1 VOL% (42.0-52.0); Immature Granulocytes % 0.3 %; Immature Granulocytes Absolute 0.03 #; Lymphocytes # 1.1 10*3/uL (1.4-4.0); Lymphocytes % 9.8 % (21.2-54.2); Mean Corpuscular HGB Conc 32.5 GM/DL (32-36); Mean Corpuscular Volume 87.2 FL (87-102); Mean Platelet Volume 9.5 FL (9.6-12.0); Monocytes % 1.2 % (1.7-12.7); Neutrophils % 88.6 % (38.7-73.9); Platelet Count 379 T/CUMM (130-400); Red Blood Count 4.94 MC/CUMM (3.8-5.5); Red Cell Distribution Width 14.1 % (9.3-17.3); White Blood Count 11.5 T/CUMM (4-12)
[2020-04-22 07:00] LABS: Albumin 3.7 G/DL (3.4-5.0); Bilirubin,Total 1.6 MG/DL (0.2-1.0); Calcium 9.4 MG/DL (8.5-10.1); Osmolality,Calculated 278.2 MOS/KG (273-304); Potassium 4.2 MMOL/L (3.5-5.1); Risk Ratio 5.27; Total Protein 7.6 G/DL (5.0-7.5); VLDL CHOLESTEROL 18.8 MG/DL
[2020-04-22] MEDS: INSULIN REGULAR 100 UNIT/ML SUBCUT SCH ×4 (08:00→20:15)
[2020-04-22] MEDS: carvediloL 6.25 MG TABLET PO SCH ×2 (08:07→16:24)
[2020-04-22] MEDS: FUROSEMIDE 40 MG/4 ML VIAL IV SCH ×2 (08:07→16:25)
[2020-04-22] MEDS: SPIRONOLACTONE 25 MG TABLET PO SCH (10:00)
[2020-04-22] MEDS: PANTOPRAZOLE 40 MG TABLET PO SCH (10:00)
[2020-04-22] MEDS: DOXYCYCLINE HYCLATE 100 MG CAPSULE PO SCH ×2 (10:00→20:08)
[2020-04-22] MEDS: ONDANSETRON 4 MG/2 ML VIAL IV PRN ×2 (16:39→20:02)
[2020-04-22] MEDS: MORPHINE 4 MG/1 ML VIAL IV PRN ×2 (16:41→20:04)
[2020-04-22 17:08] LABS: Troponin I 0.024 NG/ML (0.00-0.045)
[2020-04-23] MEDS: ENOXAPARIN 40 MG/0.4 ML SYRINGE SUBCUT SCH (02:08)
[2020-04-23 05:15] LABS: Basophils % 0.1 % (0.0-0.8); Hematocrit 41.1 VOL% (42.0-52.0); Hemoglobin 13.7 GM/DL (14.0-18.0); Immature Granulocytes % 0.3 %; Immature Granulocytes Absolute 0.05 #; Lymphocytes # 1.8 10*3/uL (1.4-4.0); Lymphocytes % 12.4 % (21.2-54.2); Mean Corpuscular HGB Conc 33.3 GM/DL (32-36); Mean Corpuscular Volume 86.3 FL (87-102); Mean Platelet Volume 9.9 FL (9.6-12.0); Monocytes % 5.9 % (1.7-12.7); Neutrophils % 81.3 % (38.7-73.9); Platelet Count 369 T/CUMM (130-400); Red Blood Count 4.76 MC/CUMM (3.8-5.5); Red Cell Distribution Width 14.1 % (9.3-17.3); White Blood Count 14.7 T/CUMM (4-12)
[2020-04-23 05:38] LABS: Calcium 9.1 MG/DL (8.5-10.1); Osmolality,Calculated 280.4 MOS/KG (273-304)
[2020-04-23] MEDS: INSULIN REGULAR 100 UNIT/ML SUBCUT SCH ×4 (08:43→20:45)
[2020-04-23 09:13] LABS: Albumin 3.5 G/DL (3.4-5.0); Bilirubin,Direct 1.05 MG/DL (0.0-0.20); Bilirubin,Indirect 1.7 MG/DL (0.0-1.0); Bilirubin,Total 2.7 MG/DL (0.2-1.0); Total Protein 7.2 G/DL (5.0-7.5)
[2020-04-23] MEDS: DOXYCYCLINE HYCLATE 100 MG CAPSULE PO SCH ×2 (09:21→20:45)
[2020-04-23] MEDS: PANTOPRAZOLE 40 MG TABLET PO SCH (09:21)
[2020-04-23] MEDS: carvediloL 6.25 MG TABLET PO SCH ×2 (09:21→16:02)
[2020-04-23] MEDS: SPIRONOLACTONE 25 MG TABLET PO SCH (09:21)
[2020-04-23] MEDS: FUROSEMIDE 40 MG/4 ML VIAL IV SCH (09:22)
[2020-04-23 15:54] LABS: Hepatitis B Core IgM Quant 0.12 Index; Hepatitis B Surface Ag Quant < 0.10 Index; Hepatitis B Surface Ag Result Non-Reactive (NonReactive); Hepatitis C Virus Ab Quant 0.13 Index; Hepatitis C Virus Ab Result Non-Reactive (NonReactive)
[2020-04-23] MEDS: POLYETHYLENE GLYCOL POWDER 17 GM PACK PO SCH (16:03)
[2020-04-23] MEDS: MORPHINE 4 MG/1 ML VIAL IV PRN (22:27)
[2020-04-23] MEDS: ONDANSETRON 4 MG/2 ML VIAL IV PRN (22:27)
[2020-04-24] MEDS: ENOXAPARIN 40 MG/0.4 ML SYRINGE SUBCUT SCH (02:11)
[2020-04-24 06:56] LABS: Basophils % 0.1 % (0.0-0.8); Eosinophils % 0.1 % (0.00-10.9); Hematocrit 45.1 VOL% (42.0-52.0); Hemoglobin 14.4 GM/DL (14.0-18.0); Immature Granulocytes % 0.5 %; Immature Granulocytes Absolute 0.08 #; Lymphocytes # 3.5 10*3/uL (1.4-4.0); Lymphocytes % 22.5 % (21.2-54.2); Mean Corpuscular HGB Conc 31.9 GM/DL (32-36); Mean Corpuscular Volume 90.2 FL (87-102); Mean Platelet Volume 11.5 FL (9.6-12.0); Monocytes % 9.5 % (1.7-12.7); Neutrophils % 67.3 % (38.7-73.9); Red Cell Distribution Width 14.3 % (9.3-17.3); White Blood Count 15.6 T/CUMM (4-12)
[2020-04-24 06:58] LABS: Platelet Count 254 T/CUMM (130-400)
[2020-04-24 07:40] LABS: Albumin 3.2 G/DL (3.4-5.0); Bilirubin,Total 2.6 MG/DL (0.2-1.0); Calcium 8.6 MG/DL (8.5-10.1); Osmolality,Calculated 268.4 MOS/KG (273-304); Potassium 4.5 MMOL/L (3.5-5.1); Total Protein 7.6 G/DL (5.0-7.5)
[2020-04-24] MEDS: INSULIN REGULAR 100 UNIT/ML SUBCUT SCH ×4 (08:22→22:05)
[2020-04-24] MEDS: DOXYCYCLINE HYCLATE 100 MG CAPSULE PO SCH (09:19)
[2020-04-24] MEDS: PANTOPRAZOLE 40 MG TABLET PO SCH (09:19)
[2020-04-24] MEDS: POLYETHYLENE GLYCOL POWDER 17 GM PACK PO SCH (09:19)
[2020-04-24] MEDS: carvediloL 6.25 MG TABLET PO SCH ×2 (09:19→16:21)
[2020-04-24] MEDS: ONDANSETRON 4 MG/2 ML VIAL IV PRN (09:24)
[2020-04-24] MEDS ORDERED: FUROSEMIDE 40 MG/4 ML VIAL IV ONE (10:12)
[2020-04-24] MEDS: PROMETHAZINE 25 MG TABLET PO PRN (10:37)
[2020-04-24] MEDS ORDERED: cefTRIAXone 1,000 MG in SYRINGE 1 EACH IV SCH (16:00)
[2020-04-24] MEDS: MEROPENEM 500 MG in SODIUM CHLORIDE 0.9% 100 ML IV SCH ×2 (16:19→23:08)
[2020-04-24 23:42] LABS: Bacteria,Urine Occasional /HPF (Few); Bilirubin,Urine Negative (Negative); Blood, Urine Negative (Negative); Glucose,Urine (UA) Negative (Negative); Hyaline Casts,Urine 13 /LPF (0-3); Ketones,Urine Negative (Negative); Mucus,Urine Occasional /LPF (Occasional); Nitrite,Urine Negative (Negative); Protein,Urine Negative; RBC,Urine 1 /HPF (0-4); Squamous Epithelial Cell,Urine Occasional /HPF (0-10); Urine Appearance CLEAR (Clear); Urine Color Amber (Yellow); Urine Specific Gravity 1.015 (1.001-1.035); WBC,Urine 1 /HPF (0-6)
[2020-04-25] MEDS: PROMETHAZINE 25 MG TABLET PO PRN (01:30)
[2020-04-25] MEDS: ENOXAPARIN 40 MG/0.4 ML SYRINGE SUBCUT SCH (02:44)
[2020-04-25] MEDS: MEROPENEM 500 MG in SODIUM CHLORIDE 0.9% 100 ML IV SCH ×4 (05:08→23:08)
[2020-04-25 05:14] LABS: Basophils % 0.1 % (0.0-0.8); Eosinophils % 0.1 % (0.00-10.9); Hemoglobin 13.9 GM/DL (14.0-18.0); Immature Granulocytes % 0.6 %; Immature Granulocytes Absolute 0.09 #; Lymphocytes # 3.6 10*3/uL (1.4-4.0); Lymphocytes % 22.9 % (21.2-54.2); Mean Corpuscular HGB Conc 32.3 GM/DL (32-36); Mean Corpuscular Volume 86.9 FL (87-102); Mean Platelet Volume 9.4 FL (9.6-12.0); Monocytes % 12.8 % (1.7-12.7); NRBC # 0.04 10*3/uL; Neutrophils % 63.5 % (38.7-73.9); Platelet Count 419 T/CUMM (130-400); Red Blood Count 4.95 MC/CUMM (3.8-5.5); White Blood Count 15.9 T/CUMM (4-12)
[2020-04-25 05:32] LABS: Calcium 8.8 MG/DL (8.5-10.1); Osmolality,Calculated 268.7 MOS/KG (273-304); Potassium 3.9 MMOL/L (3.5-5.1)
[2020-04-25 05:40] LABS: Albumin 3.5 G/DL (3.4-5.0); Bilirubin,Total 3.1 MG/DL (0.2-1.0); Calcium 8.8 MG/DL (8.5-10.1); Osmolality,Calculated 268.7 MOS/KG (273-304); Potassium 3.6 MMOL/L (3.5-5.1); Thyroid Stimulating Hormone 2.32 uIU/ml (0.358-3.74); Total Protein 7.1 G/DL (5.0-7.5)
[2020-04-25] MEDS: INSULIN REGULAR 100 UNIT/ML SUBCUT SCH ×4 (08:09→22:07)
[2020-04-25] MEDS: carvediloL 6.25 MG TABLET PO SCH ×2 (08:47→17:34)
[2020-04-25] MEDS: FOLIC ACID 1 MG TABLET PO SCH (08:47)
[2020-04-25] MEDS: THIAMINE 100 MG TABLET PO SCH (08:47)
[2020-04-25] MEDS: MULTIVITAMIN (BEROCCA) TABLET PO SCH (08:47)
[2020-04-25] MEDS: PANTOPRAZOLE 40 MG TABLET PO SCH (08:47)
[2020-04-25] MEDS: POLYETHYLENE GLYCOL POWDER 17 GM PACK PO SCH (08:48)
[2020-04-25] MEDS: ACETAMINOPHEN 325 MG TABLET PO PRN ×2 (10:43→17:34)
[2020-04-25] MEDS: ONDANSETRON 4 MG/2 ML VIAL IV PRN (19:48)
[2020-04-25] MEDS: ALUMINUM/MAGNES/SIMETH MAX STR 30 ML UDCUP PO PRN (19:48)
[2020-04-25] MEDS: LORazepam 2 MG/1 ML VIAL IV PRN (22:54)
[2020-04-25] MEDS ORDERED: PROMETHAZINE INJ 25 MG in SODIUM CHLORIDE 0.9% 50 ML IV PRN (23:27)
[2020-04-26] MEDS: ENOXAPARIN 40 MG/0.4 ML SYRINGE SUBCUT SCH (03:42)
[2020-04-26 05:31] LABS: Basophils % 0.2 % (0.0-0.8); Eosinophils % 0.3 % (0.00-10.9); Hemoglobin 14.8 GM/DL (14.0-18.0); Immature Granulocytes % 0.7 %; Immature Granulocytes Absolute 0.11 #; Lymphocytes # 3.7 10*3/uL (1.4-4.0); Lymphocytes % 23.4 % (21.2-54.2); Mean Corpuscular HGB Conc 33.6 GM/DL (32-36); Mean Corpuscular Volume 85.3 FL (87-102); Mean Platelet Volume 9.8 FL (9.6-12.0); Monocytes % 11.9 % (1.7-12.7); NRBC # 0.06 10*3/uL; Neutrophils % 63.5 % (38.7-73.9); Platelet Count 391 T/CUMM (130-400); Red Blood Count 5.16 MC/CUMM (3.8-5.5); White Blood Count 15.9 T/CUMM (4-12)
[2020-04-26 05:40] LABS: Calcium 9.2 MG/DL (8.5-10.1); Osmolality,Calculated 264.1 MOS/KG (273-304); Potassium 4.4 MMOL/L (3.5-5.1)
[2020-04-26 05:41] LABS: Calcium 9.1 MG/DL (8.5-10.1); Osmolality,Calculated 265.9 MOS/KG (273-304); Potassium 4.4 MMOL/L (3.5-5.1)
[2020-04-26] MEDS: LORazepam 2 MG/1 ML VIAL IV PRN ×2 (05:57→11:01)
[2020-04-26] MEDS: MEROPENEM 500 MG in SODIUM CHLORIDE 0.9% 100 ML IV SCH ×4 (06:04→23:31)
[2020-04-26] MEDS: INSULIN REGULAR 100 UNIT/ML SUBCUT SCH ×4 (07:21→20:12)
[2020-04-26] MEDS: FOLIC ACID 1 MG TABLET PO SCH (09:08)
[2020-04-26] MEDS: MULTIVITAMIN (BEROCCA) TABLET PO SCH (09:08)
[2020-04-26] MEDS: PANTOPRAZOLE 40 MG TABLET PO SCH (09:08)
[2020-04-26] MEDS: carvediloL 6.25 MG TABLET PO SCH ×2 (09:09→16:34)
[2020-04-26] MEDS: POLYETHYLENE GLYCOL POWDER 17 GM PACK PO SCH (09:09)
[2020-04-26] MEDS: THIAMINE 100 MG TABLET PO SCH (09:09)
[2020-04-26] MEDS: ONDANSETRON 4 MG/2 ML VIAL IV PRN (10:59)
[2020-04-26] MEDS: DOBUTamine 500 MG/250 ML PREMIX IV SCH (11:47)
[2020-04-26 14:19] LABS: Albumin 3.6 G/DL (3.4-5.0); Bilirubin,Direct 1.54 MG/DL (0.0-0.20); Bilirubin,Indirect 3.7 MG/DL (0.0-1.0); Bilirubin,Total 5.2 MG/DL (0.2-1.0); Total Protein 7.3 G/DL (5.0-7.5)
[2020-04-26] MEDS: HYDROmorphone 2 MG/1 ML VIAL IV PRN (21:58)
[2020-04-27] MEDS: ENOXAPARIN 40 MG/0.4 ML SYRINGE SUBCUT SCH (02:12)
[2020-04-27] MEDS: MEROPENEM 500 MG in SODIUM CHLORIDE 0.9% 100 ML IV SCH ×4 (04:30→22:46)
[2020-04-27 06:32] LABS: Basophils % 0.1 % (0.0-0.8); Eosinophils % 0.1 % (0.00-10.9); Hematocrit 43.5 VOL% (42.0-52.0); Immature Granulocytes % 0.9 %; Immature Granulocytes Absolute 0.16 #; Lymphocytes # 2.1 10*3/uL (1.4-4.0); Lymphocytes % 12.2 % (21.2-54.2); Mean Corpuscular HGB Conc 32.2 GM/DL (32-36); Mean Corpuscular Volume 87.9 FL (87-102); Mean Platelet Volume 9.8 FL (9.6-12.0); Monocytes % 9.2 % (1.7-12.7); NRBC # 0.07 10*3/uL; Neutrophils % 77.5 % (38.7-73.9); Platelet Count 304 T/CUMM (130-400); Red Blood Count 4.95 MC/CUMM (3.8-5.5); Red Cell Distribution Width 14.5 % (9.3-17.3); White Blood Count 17.2 T/CUMM (4-12)
[2020-04-27] MEDS: DOBUTamine 500 MG/250 ML PREMIX IV SCH ×2 (06:42→19:12)
[2020-04-27 06:52] LABS: Calcium 8.7 MG/DL (8.5-10.1); Osmolality,Calculated 264.5 MOS/KG (273-304); Potassium 4.2 MMOL/L (3.5-5.1)
[2020-04-27] MEDS: INSULIN REGULAR 100 UNIT/ML SUBCUT SCH ×4 (08:20→20:45)
[2020-04-27 08:56] LABS: Albumin 2.9 G/DL (3.4-5.0); Calcium 8.9 MG/DL (8.5-10.1); Osmolality,Calculated 264.5 MOS/KG (273-304); Potassium 4.3 MMOL/L (3.5-5.1); Total Protein 6.5 G/DL (5.0-7.5)
[2020-04-27] MEDS: PANTOPRAZOLE 40 MG TABLET PO SCH (09:43)
[2020-04-27] MEDS: FOLIC ACID 1 MG TABLET PO SCH (09:43)
[2020-04-27] MEDS: POLYETHYLENE GLYCOL POWDER 17 GM PACK PO SCH (09:43)
[2020-04-27] MEDS: THIAMINE 100 MG TABLET PO SCH (09:43)
[2020-04-27] MEDS: MULTIVITAMIN (BEROCCA) TABLET PO SCH (09:43)
[2020-04-27] MEDS: carvediloL 6.25 MG TABLET PO SCH ×2 (09:44→16:54)
[2020-04-27] MEDS ORDERED: NITROGLYCERIN SL 0.4 MG TABLET SL ONE ×2 (11:01→11:02)
[2020-04-27] MEDS ORDERED: MORPHINE 4 MG/1 ML VIAL IV ONE (11:05)
[2020-04-27] MEDS ORDERED: ALUM/MAG/SIMETH/LIDO VISC 1:1 30 ML BOTTLE PO ONE (11:06)
[2020-04-27 12:05] LABS: CKMB % 8.9 %
[2020-04-27 12:06] LABS: Troponin I 0.922 NG/ML (0.00-0.045)
[2020-04-27] MEDS: ENOXAPARIN 100 MG/ML SYRINGE SUBCUT SCH (16:55)
[2020-04-27] MEDS: ASPIRIN CHEW 81 MG TABLET PO SCH (16:56)
[2020-04-27 17:39] LABS: CKMB % 8.8 %
[2020-04-27 17:43] LABS: Troponin I 0.829 NG/ML (0.00-0.045)
[2020-04-27] MEDS: SUCRALFATE 1 GM/10 ML UDCUP PO SCH (21:30)
[2020-04-28] MEDS: chlordiazePOXIDE 25 MG CAPSULE PO PRN (00:24)
[2020-04-28] MEDS: LORazepam 2 MG/1 ML VIAL IV PRN ×2 (01:24→21:30)
[2020-04-28] MEDS: DOBUTamine 500 MG/250 ML PREMIX IV SCH ×2 (04:04→20:45)
[2020-04-28] MEDS: HYDROmorphone 2 MG/1 ML VIAL IV PRN (04:11)
[2020-04-28] MEDS: MEROPENEM 500 MG in SODIUM CHLORIDE 0.9% 100 ML IV SCH ×3 (04:15→16:52)
[2020-04-28 05:48] LABS: Basophils % 0.2 % (0.0-0.8); Eosinophils % 0.2 % (0.00-10.9); Hematocrit 44.1 VOL% (42.0-52.0); Hemoglobin 14.4 GM/DL (14.0-18.0); Immature Granulocytes Absolute 0.18 #; Lymphocytes # 2.8 10*3/uL (1.4-4.0); Lymphocytes % 15.9 % (21.2-54.2); Mean Corpuscular HGB Conc 32.7 GM/DL (32-36); Mean Corpuscular Volume 87.2 FL (87-102); Mean Platelet Volume 9.7 FL (9.6-12.0); Monocytes % 10.2 % (1.7-12.7); NRBC # 0.05 10*3/uL; Neutrophils % 72.5 % (38.7-73.9); Platelet Count 321 T/CUMM (130-400); Red Blood Count 5.06 MC/CUMM (3.8-5.5); Red Cell Distribution Width 14.8 % (9.3-17.3); White Blood Count 17.8 T/CUMM (4-12)
[2020-04-28 06:06] LABS: CKMB % 6.3 %
[2020-04-28 06:07] LABS: Troponin I 0.724 NG/ML (0.00-0.045)
[2020-04-28 06:09] LABS: Albumin 3.1 G/DL (3.4-5.0); Calcium 8.7 MG/DL (8.5-10.1); Osmolality,Calculated 269.4 MOS/KG (273-304); Potassium 4.9 MMOL/L (3.5-5.1); Total Protein 6.6 G/DL (5.0-7.5)
[2020-04-28] MEDS: INSULIN REGULAR 100 UNIT/ML SUBCUT SCH ×4 (08:35→22:15)
[2020-04-28] MEDS: FOLIC ACID 1 MG TABLET PO SCH (09:37)
[2020-04-28] MEDS: ASPIRIN CHEW 81 MG TABLET PO SCH (09:37)
[2020-04-28] MEDS: MULTIVITAMIN (BEROCCA) TABLET PO SCH (09:37)
[2020-04-28] MEDS: THIAMINE 100 MG TABLET PO SCH (09:37)
[2020-04-28] MEDS: carvediloL 6.25 MG TABLET PO SCH ×2 (09:37→16:51)
[2020-04-28] MEDS: ENOXAPARIN 100 MG/ML SYRINGE SUBCUT SCH (09:38)
[2020-04-28] MEDS: SUCRALFATE 1 GM/10 ML UDCUP PO SCH ×4 (09:38→20:55)
[2020-04-28] MEDS: POLYETHYLENE GLYCOL POWDER 17 GM PACK PO SCH (09:38)
[2020-04-28] MEDS ORDERED: HALOPERIDOL 5 MG/ML AMP IM ONE (21:45)
[2020-04-29] MEDS: MEROPENEM 500 MG in SODIUM CHLORIDE 0.9% 100 ML IV SCH ×4 (00:35→18:04)
[2020-04-29 01:24] LABS: Basophils % 0.1 % (0.0-0.8); Eosinophils % 0.2 % (0.00-10.9); Hematocrit 43.4 VOL% (42.0-52.0); Hemoglobin 14.4 GM/DL (14.0-18.0); Immature Granulocytes % 2.1 %; Immature Granulocytes Absolute 0.38 #; Lymphocytes # 3.7 10*3/uL (1.4-4.0); Lymphocytes % 20.5 % (21.2-54.2); Mean Corpuscular HGB Conc 33.2 GM/DL (32-36); Mean Corpuscular Volume 86.8 FL (87-102); Mean Platelet Volume 9.9 FL (9.6-12.0); Monocytes % 9.2 % (1.7-12.7); NRBC # 0.07 10*3/uL; Neutrophils % 67.9 % (38.7-73.9); Platelet Count 317 T/CUMM (130-400); Red Cell Distribution Width 14.7 % (9.3-17.3); White Blood Count 17.9 T/CUMM (4-12)
[2020-04-29 01:43] LABS: Albumin 3.1 G/DL (3.4-5.0); Bilirubin,Total 7.9 MG/DL (0.2-1.0); CKMB % 4.5 %; Calcium 8.2 MG/DL (8.5-10.1); Osmolality,Calculated 262.9 MOS/KG (273-304); Potassium 4.6 MMOL/L (3.5-5.1); Total Protein 6.6 G/DL (5.0-7.5)
[2020-04-29 01:46] LABS: Troponin I 0.45 NG/ML (0.00-0.045)
[2020-04-29] MEDS: chlordiazePOXIDE 25 MG CAPSULE PO PRN (02:09)
[2020-04-29 02:27] LABS: ABG Base Excess -3.2 MMOL/L (-2.5-2.5); ABG HCO3 21.8 MMOL/L (20-26); ABG Oxygen Saturation 99.9 % (95-100); ABG PH 7.528 (7.35-7.45); ABG TCO2 14.5 MMOL/L (23-27); Allen Test Positive
[2020-04-29 02:32] LABS: ABG PCO2 20.7 MM HG (35-48)
[2020-04-29] MEDS ORDERED: SODIUM CHLORIDE 0.9% 250 ML IV ONE (03:18)
[2020-04-29 04:41] LABS: Allen Test Positive; Pt O2 Delivery Device Other
[2020-04-29 04:43] LABS: ABG Base Excess -1.7 MMOL/L (-2.5-2.5); ABG PCO2 26.6 MM HG (35-48); ABG PH 7.486 (7.35-7.45)
[2020-04-29] MEDS: HYDROmorphone 2 MG/1 ML VIAL IV PRN (04:55)
[2020-04-29] MEDS ORDERED: SODIUM BICARBONATE 50 MEQ/50 ML VIAL IV ONE (07:10)
[2020-04-29 09:25] LABS: INR 1.8; PT Patient Result 18.5 SECS (9.8-11.9)
[2020-04-29] MEDS: INSULIN REGULAR 100 UNIT/ML SUBCUT SCH ×4 (09:48→20:30)
[2020-04-29] MEDS: ENOXAPARIN 40 MG/0.4 ML SYRINGE SUBCUT SCH (09:48)
[2020-04-29] MEDS: carvediloL 6.25 MG TABLET PO SCH ×2 (09:54→16:36)
[2020-04-29] MEDS: FOLIC ACID 1 MG TABLET PO SCH (09:54)
[2020-04-29] MEDS: RIFAXIMIN 550 MG TABLET PO SCH ×2 (09:54→20:29)
[2020-04-29] MEDS: LACTULOSE 20 GM/30 ML UDCUP PO SCH ×2 (09:54→20:29)
[2020-04-29] MEDS: MULTIVITAMIN (BEROCCA) TABLET PO SCH (09:54)
[2020-04-29] MEDS: THIAMINE 100 MG TABLET PO SCH (09:54)
[2020-04-29] MEDS: ASPIRIN CHEW 81 MG TABLET PO SCH (09:54)
[2020-04-29] MEDS: SUCRALFATE 1 GM/10 ML UDCUP PO SCH ×4 (09:54→20:29)
[2020-04-29] MEDS: POLYETHYLENE GLYCOL POWDER 17 GM PACK PO SCH (09:55)
[2020-04-29 14:10] LABS: Smooth Muscle Antibody Negative (Negative)
[2020-04-29] MEDS: DOBUTamine 500 MG/250 ML PREMIX IV SCH (16:32)
[2020-04-30] MEDS: MEROPENEM 500 MG in SODIUM CHLORIDE 0.9% 100 ML IV SCH ×2 (00:05→05:20)
[2020-04-30 05:28] LABS: Basophils % 0.1 % (0.0-0.8); Eosinophils # 0.1 10*3/uL (0.0-0.87); Eosinophils % 0.5 % (0.00-10.9); Hematocrit 38.7 VOL% (42.0-52.0); Hemoglobin 12.7 GM/DL (14.0-18.0); Immature Granulocytes % 0.6 %; Immature Granulocytes Absolute 0.07 #; Lymphocytes # 2.5 10*3/uL (1.4-4.0); Lymphocytes % 20.1 % (21.2-54.2); Mean Corpuscular HGB Conc 32.8 GM/DL (32-36); Mean Corpuscular Volume 86.6 FL (87-102); Mean Platelet Volume 9.8 FL (9.6-12.0); Monocytes % 14.2 % (1.7-12.7); Neutrophils % 64.5 % (38.7-73.9); Platelet Count 274 T/CUMM (130-400); Red Blood Count 4.47 MC/CUMM (3.8-5.5); Red Cell Distribution Width 14.8 % (9.3-17.3); White Blood Count 12.2 T/CUMM (4-12)
[2020-04-30 06:04] LABS: Albumin 2.5 G/DL (3.4-5.0); Bilirubin,Direct 5.47 MG/DL (0.0-0.20); Bilirubin,Indirect 3.5 MG/DL (0.0-1.0); Calcium 8.1 MG/DL (8.5-10.1); Osmolality,Calculated 268.8 MOS/KG (273-304); Potassium 3.8 MMOL/L (3.5-5.1); Total Protein 5.6 G/DL (5.0-7.5)
[2020-04-30] MEDS: POLYETHYLENE GLYCOL POWDER 17 GM PACK PO SCH (08:39)
[2020-04-30] MEDS: ENOXAPARIN 40 MG/0.4 ML SYRINGE SUBCUT SCH ×2 (08:39→08:47)
[2020-04-30] MEDS: MULTIVITAMIN (BEROCCA) TABLET PO SCH (08:39)
[2020-04-30] MEDS: FOLIC ACID 1 MG TABLET PO SCH (08:39)
[2020-04-30] MEDS: ASPIRIN CHEW 81 MG TABLET PO SCH (08:39)
[2020-04-30] MEDS: LACTULOSE 20 GM/30 ML UDCUP PO SCH ×2 (08:39→21:15)
[2020-04-30] MEDS: THIAMINE 100 MG TABLET PO SCH (08:39)
[2020-04-30] MEDS: RIFAXIMIN 550 MG TABLET PO SCH ×2 (08:39→21:15)
[2020-04-30] MEDS: SUCRALFATE 1 GM/10 ML UDCUP PO SCH ×4 (08:39→21:15)
[2020-04-30] MEDS: carvediloL 6.25 MG TABLET PO SCH ×2 (08:39→17:07)
[2020-04-30] MEDS: INSULIN REGULAR 100 UNIT/ML SUBCUT SCH ×4 (08:46→21:15)
[2020-04-30] MEDS: DOBUTamine 500 MG/250 ML PREMIX IV SCH (11:36)
[2020-04-30] MEDS: LORazepam 2 MG/1 ML VIAL IV PRN (23:10)
[2020-05-01] MEDS ORDERED: LORazepam 2 MG/1 ML VIAL IV ONE (01:28)
[2020-05-01 03:44] LABS: Eosinophils # 0.1 10*3/uL (0.0-0.87); Eosinophils % 0.9 % (0.00-10.9); Hemoglobin 12.9 GM/DL (14.0-18.0); Immature Granulocytes % 0.4 %; Immature Granulocytes Absolute 0.04 #; Lymphocytes # 2.2 10*3/uL (1.4-4.0); Lymphocytes % 21.6 % (21.2-54.2); Mean Corpuscular HGB Conc 33.1 GM/DL (32-36); Mean Corpuscular Volume 85.9 FL (87-102); Mean Platelet Volume 9.3 FL (9.6-12.0); Monocytes % 10.6 % (1.7-12.7); NRBC # 0.02 10*3/uL; Neutrophils % 66.5 % (38.7-73.9); Platelet Count 261 T/CUMM (130-400); Red Blood Count 4.54 MC/CUMM (3.8-5.5)
[2020-05-01 03:54] LABS: INR 1.3; PT Patient Result 13.9 SECS (9.8-11.9)
[2020-05-01 04:06] LABS: Albumin 2.8 G/DL (3.4-5.0); Bilirubin,Total 8.3 MG/DL (0.2-1.0); Calcium 8.2 MG/DL (8.5-10.1); Osmolality,Calculated 271.4 MOS/KG (273-304); Potassium 3.8 MMOL/L (3.5-5.1); Total Protein 6.1 G/DL (5.0-7.5)
[2020-05-01] MEDS: INSULIN REGULAR 100 UNIT/ML SUBCUT SCH ×4 (07:40→20:33)
[2020-05-01] MEDS: SUCRALFATE 1 GM/10 ML UDCUP PO SCH ×5 (07:52→20:12)
[2020-05-01] MEDS: carvediloL 6.25 MG TABLET PO SCH ×2 (07:53→17:15)
[2020-05-01] MEDS: MULTIVITAMIN (BEROCCA) TABLET PO SCH (08:05)
[2020-05-01] MEDS: FOLIC ACID 1 MG TABLET PO SCH (08:05)
[2020-05-01] MEDS: THIAMINE 100 MG TABLET PO SCH (08:05)
[2020-05-01] MEDS: ASPIRIN CHEW 81 MG TABLET PO SCH (08:05)
[2020-05-01] MEDS: RIFAXIMIN 550 MG TABLET PO SCH ×3 (08:05→20:12)
[2020-05-01] MEDS: ENOXAPARIN 40 MG/0.4 ML SYRINGE SUBCUT SCH (08:06)
[2020-05-01] MEDS: LACTULOSE 20 GM/30 ML UDCUP PO SCH (08:06)
[2020-05-01] MEDS: POLYETHYLENE GLYCOL POWDER 17 GM PACK PO SCH ×2 (08:06→10:18)
[2020-05-01] MEDS ORDERED: ALBUTEROL/IPRATROPIUM 3 ML NEB RESP TX PRN (12:49)
[2020-05-01] MEDS ORDERED: ALBUTEROL/IPRATROPIUM 3 ML NEB RESP TX ONE (12:49)
[2020-05-01] MEDS: chlordiazePOXIDE 25 MG CAPSULE PO PRN (19:41)
[2020-05-01] MEDS: ALBUTEROL/IPRATROPIUM 3 ML NEB RESP TX SCH (22:15)
[2020-05-02] MEDS: LORazepam 2 MG/1 ML VIAL IV PRN (00:29)
[2020-05-02] MEDS: ALBUTEROL/IPRATROPIUM 3 ML NEB RESP TX SCH ×8 (00:31→23:00)
[2020-05-02] MEDS: chlordiazePOXIDE 25 MG CAPSULE PO PRN (03:50)
[2020-05-02 06:32] LABS: Albumin 3.2 G/DL (3.4-5.0); Bilirubin,Total 7.7 MG/DL (0.2-1.0); Calcium 8.6 MG/DL (8.5-10.1); Osmolality,Calculated 265.8 MOS/KG (273-304); Potassium 3.8 MMOL/L (3.5-5.1); Total Protein 7.2 G/DL (5.0-7.5)
[2020-05-02] MEDS ORDERED: ALBUTEROL/IPRATROPIUM 3 ML NEB RESP TX PRN (08:59)
[2020-05-02] MEDS: LACTULOSE 20 GM/30 ML UDCUP PO SCH (09:25)
[2020-05-02] MEDS: carvediloL 6.25 MG TABLET PO SCH ×2 (09:26→16:08)
[2020-05-02] MEDS: RIFAXIMIN 550 MG TABLET PO SCH ×2 (09:26→20:44)
[2020-05-02] MEDS: FOLIC ACID 1 MG TABLET PO SCH (09:26)
[2020-05-02] MEDS: MULTIVITAMIN (BEROCCA) TABLET PO SCH (09:26)
[2020-05-02] MEDS: POLYETHYLENE GLYCOL POWDER 17 GM PACK PO SCH (09:26)
[2020-05-02] MEDS: ASPIRIN CHEW 81 MG TABLET PO SCH (09:26)
[2020-05-02] MEDS: THIAMINE 100 MG TABLET PO SCH (09:26)
[2020-05-02] MEDS: SUCRALFATE 1 GM/10 ML UDCUP PO SCH ×4 (09:27→20:44)
[2020-05-02] MEDS: ENOXAPARIN 40 MG/0.4 ML SYRINGE SUBCUT SCH (09:27)
[2020-05-02] MEDS: INSULIN REGULAR 100 UNIT/ML SUBCUT SCH ×4 (09:27→20:44)
[2020-05-02] MEDS: ALUMINUM/MAGNES/SIMETH MAX STR 30 ML UDCUP PO PRN (12:29)
[2020-05-02] MEDS: HYDROmorphone 2 MG/1 ML VIAL IV PRN ×2 (13:11→20:44)
[2020-05-03] MEDS: ALBUTEROL/IPRATROPIUM 3 ML NEB RESP TX SCH ×6 (03:00→23:00)
[2020-05-03 05:44] LABS: Bilirubin,Total 6.3 MG/DL (0.2-1.0); Calcium 8.5 MG/DL (8.5-10.1); Osmolality,Calculated 260.2 MOS/KG (273-304); Potassium 4.2 MMOL/L (3.5-5.1); Total Protein 6.8 G/DL (5.0-7.5)
[2020-05-03] MEDS: LACTULOSE 20 GM/30 ML UDCUP PO SCH (08:50)
[2020-05-03] MEDS: POLYETHYLENE GLYCOL POWDER 17 GM PACK PO SCH (08:50)
[2020-05-03] MEDS: RIFAXIMIN 550 MG TABLET PO SCH ×2 (08:51→22:09)
[2020-05-03] MEDS: SUCRALFATE 1 GM/10 ML UDCUP PO SCH ×4 (08:51→22:09)
[2020-05-03] MEDS: ASPIRIN CHEW 81 MG TABLET PO SCH (08:51)
[2020-05-03] MEDS: carvediloL 6.25 MG TABLET PO SCH ×2 (08:51→17:34)
[2020-05-03] MEDS: FOLIC ACID 1 MG TABLET PO SCH (08:51)
[2020-05-03] MEDS: THIAMINE 100 MG TABLET PO SCH (08:51)
[2020-05-03] MEDS: chlordiazePOXIDE 25 MG CAPSULE PO PRN (08:51)
[2020-05-03] MEDS: MULTIVITAMIN (BEROCCA) TABLET PO SCH (08:51)
[2020-05-03] MEDS: INSULIN REGULAR 100 UNIT/ML SUBCUT SCH ×4 (08:52→22:09)
[2020-05-03] MEDS: ENOXAPARIN 40 MG/0.4 ML SYRINGE SUBCUT SCH (08:56)
[2020-05-03] MEDS: ACETAMINOPHEN 325 MG TABLET PO PRN (12:25)
[2020-05-03] MEDS: chlordiazePOXIDE 10 MG CAPSULE PO SCH ×2 (15:30→22:09)
[2020-05-04] MEDS: ALBUTEROL/IPRATROPIUM 3 ML NEB RESP TX SCH ×7 (02:42→23:40)
[2020-05-04] MEDS ORDERED: diphenhydrAMINE 50 MG/1 ML VIAL IV ONE (03:40)
[2020-05-04] MEDS ORDERED: HALOPERIDOL 5 MG/ML AMP IV ONE (03:40)
[2020-05-04] MEDS ORDERED: LORazepam 2 MG/1 ML VIAL ONE (03:43)
[2020-05-04] MEDS ORDERED: LORazepam 2 MG/1 ML VIAL IV ONE (03:44)
[2020-05-04] MEDS ORDERED: PHENobarbital 130 MG/1 ML VIAL IV ONE (05:15)
[2020-05-04] MEDS ORDERED: FUROSEMIDE 40 MG/4 ML VIAL IV ONE (08:35)
[2020-05-04 08:58] LABS: Basophils % 0.2 % (0.0-0.8); Eosinophils # 0.1 10*3/uL (0.0-0.87); Eosinophils % 0.9 % (0.00-10.9); Hematocrit 37.2 VOL% (42.0-52.0); Immature Granulocytes % 0.8 %; Immature Granulocytes Absolute 0.13 #; Lymphocytes # 2.4 10*3/uL (1.4-4.0); Lymphocytes % 14.4 % (21.2-54.2); Mean Corpuscular HGB Conc 32.3 GM/DL (32-36); Mean Corpuscular Volume 88.2 FL (87-102); Mean Platelet Volume 9.6 FL (9.6-12.0); Monocytes % 8.3 % (1.7-12.7); Neutrophils % 75.4 % (38.7-73.9); Platelet Count 251 T/CUMM (130-400); Red Blood Count 4.22 MC/CUMM (3.8-5.5); Red Cell Distribution Width 15.7 % (9.3-17.3); White Blood Count 16.4 T/CUMM (4-12)
[2020-05-04 09:08] LABS: INR 1.2
[2020-05-04 09:17] LABS: Albumin 2.8 G/DL (3.4-5.0); Bilirubin,Total 4.7 MG/DL (0.2-1.0); Calcium 8.4 MG/DL (8.5-10.1); Osmolality,Calculated 266.7 MOS/KG (273-304); Potassium 4.3 MMOL/L (3.5-5.1); Total Protein 5.9 G/DL (5.0-7.5)
[2020-05-04] MEDS: INSULIN REGULAR 100 UNIT/ML SUBCUT SCH ×4 (14:47→21:00)
[2020-05-04] MEDS: SUCRALFATE 1 GM/10 ML UDCUP PO SCH ×4 (14:48→21:00)
[2020-05-04] MEDS: FOLIC ACID 1 MG TABLET PO SCH (14:51)
[2020-05-04] MEDS: chlordiazePOXIDE 10 MG CAPSULE PO SCH ×3 (14:51→21:00)
[2020-05-04] MEDS: MULTIVITAMIN (BEROCCA) TABLET PO SCH (14:51)
[2020-05-04] MEDS: ASPIRIN CHEW 81 MG TABLET PO SCH (14:52)
[2020-05-04] MEDS: carvediloL 6.25 MG TABLET PO SCH ×2 (14:52→16:53)
[2020-05-04] MEDS: ENOXAPARIN 40 MG/0.4 ML SYRINGE SUBCUT SCH (14:52)
[2020-05-04] MEDS: THIAMINE 100 MG TABLET PO SCH (14:52)
[2020-05-04] MEDS: RIFAXIMIN 550 MG TABLET PO SCH ×2 (14:52→21:00)
[2020-05-04] MEDS ORDERED: FUROSEMIDE 40 MG/4 ML VIAL ONE (14:59)
[2020-05-04] MEDS: LACTULOSE 20 GM/30 ML UDCUP PO SCH (15:28)
[2020-05-04] MEDS: POLYETHYLENE GLYCOL POWDER 17 GM PACK PO SCH (15:28)
[2020-05-04] MEDS: ONDANSETRON 4 MG/2 ML VIAL IV PRN (21:03)
[2020-05-05] MEDS: LORazepam 1 MG TABLET PO PRN (00:15)
[2020-05-05] MEDS ORDERED: HALOPERIDOL 5 MG/ML AMP IM ONE (00:34)
[2020-05-05 05:55] LABS: Basophils % 0.2 % (0.0-0.8); Eosinophils # 0.1 10*3/uL (0.0-0.87); Eosinophils % 0.3 % (0.00-10.9); Hematocrit 38.4 VOL% (42.0-52.0); Hemoglobin 12.4 GM/DL (14.0-18.0); Immature Granulocytes % 0.6 %; Lymphocytes # 1.8 10*3/uL (1.4-4.0); Lymphocytes % 11.2 % (21.2-54.2); Mean Corpuscular HGB Conc 32.3 GM/DL (32-36); Mean Corpuscular Volume 87.7 FL (87-102); Mean Platelet Volume 9.8 FL (9.6-12.0); Monocytes % 7.8 % (1.7-12.7); Neutrophils % 79.9 % (38.7-73.9); Platelet Count 252 T/CUMM (130-400); Red Blood Count 4.38 MC/CUMM (3.8-5.5); Red Cell Distribution Width 15.8 % (9.3-17.3)
[2020-05-05 06:02] LABS: Calcium 8.5 MG/DL (8.5-10.1); Osmolality,Calculated 274.1 MOS/KG (273-304); Potassium 3.9 MMOL/L (3.5-5.1)
[2020-05-05 06:07] LABS: Albumin 2.8 G/DL (3.4-5.0); Bilirubin,Direct 3.49 MG/DL (0.0-0.20); Bilirubin,Total 5.5 MG/DL (0.2-1.0); Total Protein 6.6 G/DL (6.4-8.2)
[2020-05-05] MEDS: ALBUTEROL/IPRATROPIUM 3 ML NEB RESP TX SCH ×4 (07:05→20:03)
[2020-05-05] MEDS: SUCRALFATE 1 GM/10 ML UDCUP PO SCH ×3 (08:54→18:03)
[2020-05-05] MEDS: INSULIN REGULAR 100 UNIT/ML SUBCUT SCH ×4 (08:55→23:59)
[2020-05-05] MEDS: chlordiazePOXIDE 10 MG CAPSULE PO SCH ×2 (09:11→14:59)
[2020-05-05] MEDS: POLYETHYLENE GLYCOL POWDER 17 GM PACK PO SCH (09:11)
[2020-05-05] MEDS: carvediloL 6.25 MG TABLET PO SCH ×2 (09:11→18:04)
[2020-05-05] MEDS: ASPIRIN CHEW 81 MG TABLET PO SCH (09:11)
[2020-05-05] MEDS: RIFAXIMIN 550 MG TABLET PO SCH (09:11)
[2020-05-05] MEDS: FOLIC ACID 1 MG TABLET PO SCH (09:11)
[2020-05-05] MEDS: THIAMINE 100 MG TABLET PO SCH (09:11)
[2020-05-05] MEDS: MULTIVITAMIN (BEROCCA) TABLET PO SCH (09:11)
[2020-05-05] MEDS: LACTULOSE 20 GM/30 ML UDCUP PO SCH (09:11)
[2020-05-05] MEDS: ENOXAPARIN 40 MG/0.4 ML SYRINGE SUBCUT SCH (09:11)
[2020-05-05] MEDS: HALOPERIDOL 5 MG/ML AMP IM PRN (12:38)
[2020-05-05] MEDS ORDERED: methylPREDNISolone SOD SUC 125 MG/2 ML VIAL IV SCH (16:00)
[2020-05-05] MEDS: predniSONE 20 MG TABLET PO SCH (18:03)
[2020-05-06] MEDS: ALBUTEROL/IPRATROPIUM 3 ML NEB RESP TX SCH ×7 (00:20→23:40)
[2020-05-06] MEDS: SUCRALFATE 1 GM/10 ML UDCUP PO SCH ×5 (00:38→22:15)
[2020-05-06] MEDS: chlordiazePOXIDE 10 MG CAPSULE PO SCH ×4 (00:39→20:08)
[2020-05-06] MEDS: RIFAXIMIN 550 MG TABLET PO SCH ×2 (00:40→10:39)
[2020-05-06 05:11] LABS: Basophils % 0.2 % (0.0-0.8); Eosinophils # 0.1 10*3/uL (0.0-0.87); Eosinophils % 0.7 % (0.00-10.9); Hematocrit 37.4 VOL% (42.0-52.0); Hemoglobin 12.1 GM/DL (14.0-18.0); Immature Granulocytes % 0.5 %; Immature Granulocytes Absolute 0.06 #; Lymphocytes # 1.8 10*3/uL (1.4-4.0); Lymphocytes % 13.7 % (21.2-54.2); Mean Corpuscular HGB Conc 32.4 GM/DL (32-36); Mean Platelet Volume 9.3 FL (9.6-12.0); Monocytes % 7.9 % (1.7-12.7); Platelet Count 241 T/CUMM (130-400); Red Cell Distribution Width 15.9 % (9.3-17.3); White Blood Count 12.9 T/CUMM (4-12)
[2020-05-06 05:29] LABS: Calcium 8.4 MG/DL (8.5-10.1); Osmolality,Calculated 275.8 MOS/KG (273-304); Potassium 3.8 MMOL/L (3.5-5.1)
[2020-05-06 05:32] LABS: Albumin 2.5 G/DL (3.4-5.0); Bilirubin,Direct 3.13 MG/DL (0.0-0.20); Bilirubin,Indirect 2.3 MG/DL (0.0-1.0); Bilirubin,Total 5.4 MG/DL (0.2-1.0)
[2020-05-06] MEDS: ONDANSETRON 4 MG/2 ML VIAL IV PRN (10:28)
[2020-05-06] MEDS: INSULIN REGULAR 100 UNIT/ML SUBCUT SCH ×4 (10:29→22:15)
[2020-05-06] MEDS: ASPIRIN CHEW 81 MG TABLET PO SCH (10:36)
[2020-05-06] MEDS: carvediloL 6.25 MG TABLET PO SCH ×2 (10:36→16:10)
[2020-05-06] MEDS: FOLIC ACID 1 MG TABLET PO SCH (10:37)
[2020-05-06] MEDS: MULTIVITAMIN (BEROCCA) TABLET PO SCH (10:37)
[2020-05-06] MEDS: LACTULOSE 20 GM/30 ML UDCUP PO SCH (10:37)
[2020-05-06] MEDS: POLYETHYLENE GLYCOL POWDER 17 GM PACK PO SCH (10:38)
[2020-05-06] MEDS: ENOXAPARIN 40 MG/0.4 ML SYRINGE SUBCUT SCH (10:38)
[2020-05-06] MEDS: THIAMINE 100 MG TABLET PO SCH (10:39)
[2020-05-06] MEDS ORDERED: POTASSIUM CHLORIDE 20 MEQ TABLET PO ONE (10:58)
[2020-05-06] MEDS: LORazepam 2 MG/1 ML VIAL IV PRN (13:53)
[2020-05-06] MEDS: predniSONE 20 MG TABLET PO SCH (16:10)
[2020-05-06] MEDS: LORazepam 1 MG TABLET PO PRN (20:07)
[2020-05-07 06:08] LABS: Basophils % 0.1 % (0.0-0.8); Hematocrit 36.3 VOL% (42.0-52.0); Hemoglobin 11.7 GM/DL (14.0-18.0); Immature Granulocytes % 0.7 %; Immature Granulocytes Absolute 0.09 #; Lymphocytes # 0.7 10*3/uL (1.4-4.0); Lymphocytes % 5.4 % (21.2-54.2); Mean Corpuscular HGB Conc 32.2 GM/DL (32-36); Mean Corpuscular Volume 86.2 FL (87-102); Mean Platelet Volume 9.5 FL (9.6-12.0); Monocytes % 2.7 % (1.7-12.7); Neutrophils % 91.1 % (38.7-73.9); Platelet Count 244 T/CUMM (130-400); Red Blood Count 4.21 MC/CUMM (3.8-5.5); White Blood Count 12.9 T/CUMM (4-12)
[2020-05-07 06:23] LABS: Calcium 8.7 MG/DL (8.5-10.1); Osmolality,Calculated 277.7 MOS/KG (273-304); Potassium 4.3 MMOL/L (3.5-5.1)
[2020-05-07 06:48] LABS: Band Neutrophils 1 % (0-10); Lymphocytes 3 % (20-55); Segmented Neutrophils 95 % (50-85); Total Cells Counted 100
[2020-05-07 06:49] LABS: Hypochromasia 1+; Microcytosis 1+
[2020-05-07 06:50] LABS: Platelet Estimate Normal; Polychromasia Slight
[2020-05-07] MEDS: ALBUTEROL/IPRATROPIUM 3 ML NEB RESP TX SCH ×3 (07:48→11:29)
[2020-05-07] MEDS: INSULIN REGULAR 100 UNIT/ML SUBCUT SCH ×4 (08:04→21:21)
[2020-05-07] MEDS: ASPIRIN CHEW 81 MG TABLET PO SCH (08:06)
[2020-05-07] MEDS: chlordiazePOXIDE 10 MG CAPSULE PO SCH ×3 (08:06→21:20)
[2020-05-07] MEDS: THIAMINE 100 MG TABLET PO SCH (08:06)
[2020-05-07] MEDS: MULTIVITAMIN (BEROCCA) TABLET PO SCH (08:06)
[2020-05-07] MEDS: FOLIC ACID 1 MG TABLET PO SCH (08:06)
[2020-05-07] MEDS: SUCRALFATE 1 GM/10 ML UDCUP PO SCH ×4 (08:07→21:20)
[2020-05-07] MEDS: LACTULOSE 20 GM/30 ML UDCUP PO SCH (08:07)
[2020-05-07] MEDS: LORazepam 2 MG/1 ML VIAL IV PRN ×4 (08:07→21:21)
[2020-05-07] MEDS: carvediloL 6.25 MG TABLET PO SCH ×2 (08:07→16:37)
[2020-05-07] MEDS: ENOXAPARIN 40 MG/0.4 ML SYRINGE SUBCUT SCH (08:08)
[2020-05-07] MEDS: POLYETHYLENE GLYCOL POWDER 17 GM PACK PO SCH (08:08)
[2020-05-07 08:45] LABS: Albumin 2.6 G/DL (3.4-5.0); Bilirubin,Direct 2.52 MG/DL (0.0-0.20); Bilirubin,Indirect 0.9 MG/DL (0.0-1.0); Bilirubin,Total 3.4 MG/DL (0.2-1.0); Total Protein 6.2 G/DL (6.4-8.2)
[2020-05-07] MEDS ORDERED: FUROSEMIDE 40 MG/4 ML VIAL IV ONE (09:15)
[2020-05-07] MEDS: BENZONATATE 100 MG CAPSULE PO PRN ×2 (09:58→16:29)
[2020-05-07] MEDS: guaiFENesin 200 MG/10 ML UDCUP PO PRN (11:28)
[2020-05-07] MEDS: predniSONE 20 MG TABLET PO SCH (16:29)
[2020-05-07] MEDS ORDERED: DEXTROMETHORPHAN ER 6 MG/ML 90 ML/BOTTLE PO PRN (17:10)
[2020-05-07] MEDS: HALOPERIDOL 5 MG/ML AMP IM PRN (21:20)
[2020-05-07] MEDS ORDERED: ALBUTEROL/IPRATROPIUM 3 ML NEB RESP TX PRN (23:41)
[2020-05-08] MEDS: HALOPERIDOL 5 MG/ML AMP IM PRN ×2 (05:29→18:30)
[2020-05-08 05:50] LABS: Hematocrit 37.1 VOL% (42.0-52.0); Immature Granulocytes % 0.6 %; Immature Granulocytes Absolute 0.08 #; Lymphocytes # 0.9 10*3/uL (1.4-4.0); Lymphocytes % 6.6 % (21.2-54.2); Mean Corpuscular HGB Conc 32.3 GM/DL (32-36); Mean Corpuscular Volume 87.3 FL (87-102); Mean Platelet Volume 9.3 FL (9.6-12.0); Monocytes % 4.4 % (1.7-12.7); Neutrophils % 88.4 % (38.7-73.9); Platelet Count 227 T/CUMM (130-400); Red Blood Count 4.25 MC/CUMM (3.8-5.5); Red Cell Distribution Width 16.4 % (9.3-17.3); White Blood Count 12.9 T/CUMM (4-12)
[2020-05-08 06:03] LABS: Osmolality,Calculated 273.8 MOS/KG (273-304); Potassium 4.9 MMOL/L (3.5-5.1)
[2020-05-08 06:07] LABS: Albumin 2.7 G/DL (3.4-5.0); Bilirubin,Direct 2.02 MG/DL (0.0-0.20); Bilirubin,Indirect 1.2 MG/DL (0.0-1.0); Bilirubin,Total 3.2 MG/DL (0.2-1.0); Total Protein 6.6 G/DL (6.4-8.2)
[2020-05-08] MEDS: SUCRALFATE 1 GM/10 ML UDCUP PO SCH ×4 (06:33→20:48)
[2020-05-08] MEDS: LORazepam 2 MG/1 ML VIAL IV PRN ×3 (07:14→22:10)
[2020-05-08] MEDS: INSULIN REGULAR 100 UNIT/ML SUBCUT SCH ×4 (08:02→20:49)
[2020-05-08] MEDS: LACTULOSE 20 GM/30 ML UDCUP PO SCH (09:02)
[2020-05-08] MEDS: THIAMINE 100 MG TABLET PO SCH (09:02)
[2020-05-08] MEDS: carvediloL 6.25 MG TABLET PO SCH ×2 (09:03→18:33)
[2020-05-08] MEDS: FUROSEMIDE 40 MG TABLET PO SCH (09:03)
[2020-05-08] MEDS: ENOXAPARIN 40 MG/0.4 ML SYRINGE SUBCUT SCH (09:03)
[2020-05-08] MEDS: FOLIC ACID 1 MG TABLET PO SCH (09:03)
[2020-05-08] MEDS: POLYETHYLENE GLYCOL POWDER 17 GM PACK PO SCH (09:03)
[2020-05-08] MEDS: ASPIRIN CHEW 81 MG TABLET PO SCH (09:03)
[2020-05-08] MEDS: MULTIVITAMIN (BEROCCA) TABLET PO SCH (09:03)
[2020-05-08] MEDS: chlordiazePOXIDE 10 MG CAPSULE PO SCH ×3 (09:03→20:49)
[2020-05-08] MEDS: predniSONE 20 MG TABLET PO SCH (15:36)
[2020-05-09] MEDS: LORazepam 2 MG/1 ML VIAL IV PRN ×3 (04:03→20:45)
[2020-05-09 06:36] LABS: Basophils % 0.1 % (0.0-0.8); Hematocrit 37.1 VOL% (42.0-52.0); Hemoglobin 11.7 GM/DL (14.0-18.0); Immature Granulocytes % 0.8 %; Immature Granulocytes Absolute 0.09 #; Lymphocytes # 1.1 10*3/uL (1.4-4.0); Lymphocytes % 9.9 % (21.2-54.2); Mean Corpuscular HGB Conc 31.5 GM/DL (32-36); Mean Platelet Volume 9.1 FL (9.6-12.0); Monocytes % 4.7 % (1.7-12.7); Neutrophils % 84.5 % (38.7-73.9); Platelet Count 236 T/CUMM (130-400); Red Blood Count 4.17 MC/CUMM (3.8-5.5); Red Cell Distribution Width 16.2 % (9.3-17.3); White Blood Count 11.2 T/CUMM (4-12)
[2020-05-09 06:45] LABS: Calcium 8.8 MG/DL (8.5-10.1); Osmolality,Calculated 276.8 MOS/KG (273-304); Potassium 4.5 MMOL/L (3.5-5.1)
[2020-05-09] MEDS: INSULIN REGULAR 100 UNIT/ML SUBCUT SCH ×4 (08:12→20:06)
[2020-05-09] MEDS: SUCRALFATE 1 GM/10 ML UDCUP PO SCH ×4 (09:14→20:00)
[2020-05-09] MEDS: LACTULOSE 20 GM/30 ML UDCUP PO SCH ×3 (09:14→22:06)
[2020-05-09] MEDS: MULTIVITAMIN (BEROCCA) TABLET PO SCH (09:15)
[2020-05-09] MEDS: ASPIRIN CHEW 81 MG TABLET PO SCH (09:15)
[2020-05-09] MEDS: THIAMINE 100 MG TABLET PO SCH (09:15)
[2020-05-09] MEDS: chlordiazePOXIDE 10 MG CAPSULE PO SCH ×3 (09:15→20:00)
[2020-05-09] MEDS: carvediloL 6.25 MG TABLET PO SCH ×2 (09:15→16:33)
[2020-05-09] MEDS: FUROSEMIDE 40 MG TABLET PO SCH (09:16)
[2020-05-09] MEDS: POLYETHYLENE GLYCOL POWDER 17 GM PACK PO SCH (09:16)
[2020-05-09] MEDS: ENOXAPARIN 40 MG/0.4 ML SYRINGE SUBCUT SCH (09:16)
[2020-05-09] MEDS: FOLIC ACID 1 MG TABLET PO SCH (09:16)
[2020-05-09] MEDS: LEVALBUTEROL 0.63 MG/3 ML NEB RESP TX SCH ×3 (11:50→18:55)
[2020-05-09] MEDS: HALOPERIDOL 5 MG/ML AMP IM PRN ×2 (14:16→20:45)
[2020-05-09] MEDS: predniSONE 20 MG TABLET PO SCH (16:33)
[2020-05-09] MEDS: LORazepam 1 MG TABLET PO PRN (20:00)
[2020-05-10] MEDS: LEVALBUTEROL 0.63 MG/3 ML NEB RESP TX SCH ×7 (00:02→23:35)
[2020-05-10] MEDS ORDERED: HALOPERIDOL 5 MG/ML AMP IM PRN (00:11)
[2020-05-10] MEDS: LORazepam 2 MG/1 ML VIAL IV PRN (00:25)
[2020-05-10] MEDS ORDERED: diphenhydrAMINE 50 MG/1 ML VIAL IV ONE (02:26)
[2020-05-10] MEDS ORDERED: ETOMIDATE 20 MG/10 ML VIAL IV ONE ×2 (03:57→04:09)
[2020-05-10] MEDS ORDERED: VECURONIUM 10 MG VIAL IV ONE ×2 (03:57→04:13)
[2020-05-10 05:07] LABS: Basophils % 0.1 % (0.0-0.8); Hematocrit 42.5 VOL% (42.0-52.0); Hemoglobin 13.7 GM/DL (14.0-18.0); Immature Granulocytes % 0.5 %; Immature Granulocytes Absolute 0.05 #; Lymphocytes % 9.3 % (21.2-54.2); Mean Corpuscular HGB Conc 32.2 GM/DL (32-36); Mean Platelet Volume 9.4 FL (9.6-12.0); Monocytes % 4.4 % (1.7-12.7); Neutrophils % 85.7 % (38.7-73.9); Platelet Count 242 T/CUMM (130-400); Red Blood Count 4.83 MC/CUMM (3.8-5.5); Red Cell Distribution Width 16.1 % (9.3-17.3); White Blood Count 10.7 T/CUMM (4-12)
[2020-05-10] MEDS: LACTULOSE 20 GM/30 ML UDCUP PO SCH ×4 (05:23→20:15)
[2020-05-10 05:25] LABS: Calcium 9.1 MG/DL (8.5-10.1); Osmolality,Calculated 275.8 MOS/KG (273-304); Potassium 4.3 MMOL/L (3.5-5.1)
[2020-05-10 05:29] LABS: Bilirubin,Direct 2.02 MG/DL (0.0-0.20); Bilirubin,Indirect 1.3 MG/DL (0.0-1.0); Bilirubin,Total 3.3 MG/DL (0.2-1.0); Total Protein 6.9 G/DL (6.4-8.2)
[2020-05-10 06:11] LABS: ABG HCO3 26.2 MMOL/L (20-26); ABG Oxygen Saturation 99.6 % (95-100); ABG PH 7.379 (7.35-7.45); ABG TCO2 24.3 MMOL/L (23-27)
[2020-05-10] MEDS: fentaNYL INJ 1,250 MCG in SODIUM CHLORIDE 0.9% 225 ML IV PRN ×2 (08:24→17:42)
[2020-05-10] MEDS: FOLIC ACID 1 MG TABLET PO SCH (10:10)
[2020-05-10] MEDS: POLYETHYLENE GLYCOL POWDER 17 GM PACK PO SCH (10:10)
[2020-05-10] MEDS: FUROSEMIDE 40 MG TABLET PO SCH (10:10)
[2020-05-10] MEDS: THIAMINE 100 MG TABLET PO SCH (10:10)
[2020-05-10] MEDS: SUCRALFATE 1 GM/10 ML UDCUP PO SCH ×4 (10:10→20:15)
[2020-05-10] MEDS: chlordiazePOXIDE 10 MG CAPSULE PO SCH (10:10)
[2020-05-10] MEDS: carvediloL 6.25 MG TABLET PO SCH ×2 (10:10→16:59)
[2020-05-10] MEDS: ASPIRIN CHEW 81 MG TABLET PO SCH (10:10)
[2020-05-10] MEDS: ENOXAPARIN 40 MG/0.4 ML SYRINGE SUBCUT SCH (10:10)
[2020-05-10] MEDS: MULTIVITAMIN (BEROCCA) TABLET PO SCH (10:10)
[2020-05-10 11:39] LABS: Barbiturates Screen,Urine Positive (Negative); Benzodiazepines Screen,Urine Positive (Negative); Cannabinoid Screen,Urine Positive (Negative); Opiate Screen,Urine Negative (Negative); Phencyclidine Screen,Urine Negative (Negative)
[2020-05-10] MEDS: predniSONE 20 MG TABLET PO SCH (12:10)
[2020-05-10] MEDS: INSULIN REGULAR 100 UNIT/ML SUBCUT SCH ×3 (12:10→19:05)
[2020-05-10] MEDS: FAMOTIDINE 8 MG/ML 50 ML/BOTTLE PO SCH ×2 (12:15→20:16)
[2020-05-10] MEDS ORDERED: MIDAZOLAM 100 MG in SODIUM CHLORIDE 0.9% 80 ML IV PRN (17:27)
[2020-05-10] MEDS: fentaNYL INJ 2,500 MCG in SODIUM CHLORIDE 0.9% 450 ML IV PRN (22:18)
[2020-05-11] MEDS: INSULIN REGULAR 100 UNIT/ML SUBCUT SCH ×4 (00:35→17:26)
[2020-05-11] MEDS ORDERED: SODIUM CHLORIDE 0.9% 500 ML IV ONE (00:36)
[2020-05-11] MEDS: LEVALBUTEROL 0.63 MG/3 ML NEB RESP TX SCH ×5 (03:17→18:45)
[2020-05-11] MEDS: LACTULOSE 20 GM/30 ML UDCUP PO SCH ×3 (03:26→18:04)
[2020-05-11 04:56] LABS: ABG Base Excess 1.3 MMOL/L (-2.5-2.5); ABG HCO3 25.6 MMOL/L (20-26); ABG Oxygen Saturation 99.9 % (95-100); ABG PCO2 41.3 MM HG (35-48); ABG PH 7.409 (7.35-7.45); ABG TCO2 22.4 MMOL/L (23-27); Allen Test Positive; Pt O2 Delivery Device Ventilator
[2020-05-11 06:34] LABS: Basophils % 0.2 % (0.0-0.8); Eosinophils % 0.2 % (0.00-10.9); Hematocrit 43.6 VOL% (42.0-52.0); Hemoglobin 13.6 GM/DL (14.0-18.0); Immature Granulocytes % 0.4 %; Immature Granulocytes Absolute 0.05 #; Lymphocytes # 3.2 10*3/uL (1.4-4.0); Mean Corpuscular HGB Conc 31.2 GM/DL (32-36); Mean Corpuscular Volume 89.7 FL (87-102); Mean Platelet Volume 9.7 FL (9.6-12.0); Monocytes % 9.2 % (1.7-12.7); Platelet Count 233 T/CUMM (130-400); Red Blood Count 4.86 MC/CUMM (3.8-5.5); Red Cell Distribution Width 16.2 % (9.3-17.3); White Blood Count 13.2 T/CUMM (4-12)
[2020-05-11 06:57] LABS: Albumin 2.4 G/DL (3.4-5.0); Bilirubin,Total 2.4 MG/DL (0.2-1.0); Calcium 8.7 MG/DL (8.5-10.1); Potassium 5.4 MMOL/L (3.5-5.1); Total Protein 6.1 G/DL (6.4-8.2)
[2020-05-11] MEDS: carvediloL 6.25 MG TABLET PO SCH ×2 (07:49→16:42)
[2020-05-11] MEDS: ENOXAPARIN 40 MG/0.4 ML SYRINGE SUBCUT SCH (08:17)
[2020-05-11] MEDS: POLYETHYLENE GLYCOL POWDER 17 GM PACK PO SCH (08:17)
[2020-05-11] MEDS: FAMOTIDINE 8 MG/ML 50 ML/BOTTLE PO SCH ×2 (08:17→20:37)
[2020-05-11] MEDS: THIAMINE 100 MG TABLET PO SCH (08:18)
[2020-05-11] MEDS: FUROSEMIDE 40 MG TABLET PO SCH (08:18)
[2020-05-11] MEDS: ASPIRIN CHEW 81 MG TABLET PO SCH (08:18)
[2020-05-11] MEDS: FOLIC ACID 1 MG TABLET PO SCH (08:18)
[2020-05-11] MEDS: MULTIVITAMIN (BEROCCA) TABLET PO SCH (08:18)
[2020-05-11] MEDS: SUCRALFATE 1 GM/10 ML UDCUP PO SCH ×4 (08:20→20:37)
[2020-05-11] MEDS: predniSONE 20 MG TABLET PO SCH (10:36)
[2020-05-11] MEDS: fentaNYL INJ 2,500 MCG in SODIUM CHLORIDE 0.9% 450 ML IV PRN (12:58)
[2020-05-11] MEDS: fentaNYL 50 MCG/HR PATCH TRANSDERM SCH (13:08)
[2020-05-11] MEDS: QUEtiapine 25 MG TABLET PO SCH ×2 (13:09→20:37)
[2020-05-12] MEDS: INSULIN REGULAR 100 UNIT/ML SUBCUT SCH ×5 (00:30→23:23)
[2020-05-12] MEDS: LEVALBUTEROL 0.63 MG/3 ML NEB RESP TX SCH ×6 (00:56→18:20)
[2020-05-12 03:35] LABS: ABG Base Excess 3.6 MMOL/L (-2.5-2.5); ABG HCO3 27.6 MMOL/L (20-26); ABG Oxygen Saturation 97.7 % (95-100); ABG PCO2 40.9 MM HG (35-48); ABG PH 7.443 (7.35-7.45); ABG PO2 86.7 MM HG (80-95); ABG TCO2 24.5 MMOL/L (23-27); Allen Test Positive; Pt O2 Delivery Device Ventilator
[2020-05-12] MEDS: LACTULOSE 20 GM/30 ML UDCUP PO SCH ×3 (04:11→18:38)
[2020-05-12] MEDS: fentaNYL INJ 2,500 MCG in SODIUM CHLORIDE 0.9% 450 ML IV PRN (05:40)
[2020-05-12 06:55] LABS: Basophils % 0.2 % (0.0-0.8); Eosinophils # 0.1 10*3/uL (0.0-0.87); Eosinophils % 0.4 % (0.00-10.9); Hematocrit 38.6 VOL% (42.0-52.0); Hemoglobin 12.1 GM/DL (14.0-18.0); Immature Granulocytes % 0.4 %; Immature Granulocytes Absolute 0.05 #; Lymphocytes # 1.8 10*3/uL (1.4-4.0); Lymphocytes % 15.2 % (21.2-54.2); Mean Corpuscular HGB Conc 31.3 GM/DL (32-36); Mean Corpuscular Volume 88.5 FL (87-102); Monocytes % 12.8 % (1.7-12.7); Platelet Count 176 T/CUMM (130-400); Red Blood Count 4.36 MC/CUMM (3.8-5.5); Red Cell Distribution Width 15.8 % (9.3-17.3)
[2020-05-12 07:15] LABS: Albumin 2.4 G/DL (3.4-5.0); Bilirubin,Total 2.7 MG/DL (0.2-1.0); Calcium 8.3 MG/DL (8.5-10.1); Osmolality,Calculated 282.4 MOS/KG (273-304); Potassium 4.7 MMOL/L (3.5-5.1); Total Protein 5.9 G/DL (6.4-8.2)
[2020-05-12] MEDS: SUCRALFATE 1 GM/10 ML UDCUP PO SCH ×4 (08:06→20:21)
[2020-05-12] MEDS: FUROSEMIDE 40 MG TABLET PO SCH (08:06)
[2020-05-12] MEDS: QUEtiapine 25 MG TABLET PO SCH ×2 (08:06→20:22)
[2020-05-12] MEDS: THIAMINE 100 MG TABLET PO SCH (08:06)
[2020-05-12] MEDS: MULTIVITAMIN (BEROCCA) TABLET PO SCH (08:06)
[2020-05-12] MEDS: POLYETHYLENE GLYCOL POWDER 17 GM PACK PO SCH (08:06)
[2020-05-12] MEDS: ASPIRIN CHEW 81 MG TABLET PO SCH (08:06)
[2020-05-12] MEDS: FOLIC ACID 1 MG TABLET PO SCH (08:06)
[2020-05-12] MEDS: FAMOTIDINE 8 MG/ML 50 ML/BOTTLE PO SCH ×2 (08:08→20:21)
[2020-05-12] MEDS: carvediloL 6.25 MG TABLET PO SCH ×2 (08:08→16:00)
[2020-05-12] MEDS: ENOXAPARIN 40 MG/0.4 ML SYRINGE SUBCUT SCH (08:10)
[2020-05-12] MEDS: predniSONE 20 MG TABLET PO SCH (10:19)
[2020-05-13] MEDS: LEVALBUTEROL 0.63 MG/3 ML NEB RESP TX SCH ×7 (00:27→23:40)
[2020-05-13 03:03] LABS: ABG HCO3 28.1 MMOL/L (20-26); ABG Oxygen Saturation 99.2 % (95-100); ABG PCO2 51.3 MM HG (35-48); ABG TCO2 26.7 MMOL/L (23-27); Allen Test Positive; Pt O2 Delivery Device BIPAP
[2020-05-13] MEDS: LACTULOSE 20 GM/30 ML UDCUP PO SCH ×3 (03:22→18:47)
[2020-05-13 05:02] LABS: Basophils % 0.1 % (0.0-0.8); Eosinophils % 0.1 % (0.00-10.9); Hematocrit 40.5 VOL% (42.0-52.0); Hemoglobin 12.8 GM/DL (14.0-18.0); Immature Granulocytes % 0.3 %; Immature Granulocytes Absolute 0.04 #; Lymphocytes % 6.7 % (21.2-54.2); Mean Corpuscular HGB Conc 31.6 GM/DL (32-36); Mean Corpuscular Volume 87.9 FL (87-102); Mean Platelet Volume 9.5 FL (9.6-12.0); Monocytes % 7.5 % (1.7-12.7); Neutrophils % 85.3 % (38.7-73.9); Platelet Count 199 T/CUMM (130-400); Red Blood Count 4.61 MC/CUMM (3.8-5.5); Red Cell Distribution Width 15.6 % (9.3-17.3); White Blood Count 14.4 T/CUMM (4-12)
[2020-05-13 05:19] LABS: Osmolality,Calculated 279.7 MOS/KG (273-304)
[2020-05-13] MEDS: INSULIN REGULAR 100 UNIT/ML SUBCUT SCH ×3 (05:29→18:47)
[2020-05-13] MEDS: carvediloL 6.25 MG TABLET PO SCH ×2 (08:15→18:20)
[2020-05-13] MEDS: SUCRALFATE 1 GM/10 ML UDCUP PO SCH ×4 (08:15→21:12)
[2020-05-13] MEDS: MULTIVITAMIN (BEROCCA) TABLET PO SCH (10:21)
[2020-05-13] MEDS: POLYETHYLENE GLYCOL POWDER 17 GM PACK PO SCH (10:22)
[2020-05-13] MEDS: THIAMINE 100 MG TABLET PO SCH (10:22)
[2020-05-13] MEDS: FOLIC ACID 1 MG TABLET PO SCH (10:22)
[2020-05-13] MEDS: ASPIRIN CHEW 81 MG TABLET PO SCH (10:46)
[2020-05-13] MEDS: ENOXAPARIN 40 MG/0.4 ML SYRINGE SUBCUT SCH (10:47)
[2020-05-13] MEDS: predniSONE 20 MG TABLET PO SCH (10:47)
[2020-05-13] MEDS: FUROSEMIDE 40 MG TABLET PO SCH (10:47)
[2020-05-13] MEDS: FAMOTIDINE 8 MG/ML 50 ML/BOTTLE PO SCH ×2 (10:48→21:12)
[2020-05-13] MEDS: QUEtiapine 25 MG TABLET PO SCH ×2 (10:48→21:13)
[2020-05-14] MEDS: LEVALBUTEROL 0.63 MG/3 ML NEB RESP TX SCH ×6 (03:15→23:44)
[2020-05-14] MEDS: LACTULOSE 20 GM/30 ML UDCUP PO SCH ×3 (04:31→20:14)
[2020-05-14] MEDS: INSULIN REGULAR 100 UNIT/ML SUBCUT SCH ×4 (04:32→18:26)
[2020-05-14 04:43] LABS: ABG Base Excess 4.6 MMOL/L (-2.5-2.5); ABG HCO3 28.6 MMOL/L (20-26); ABG Oxygen Saturation 98.6 % (95-100); ABG PCO2 48.3 MM HG (35-48); ABG PH 7.406 (7.35-7.45); ABG TCO2 26.6 MMOL/L (23-27); Allen Test Positive
[2020-05-14 04:55] LABS: Basophils % 0.1 % (0.0-0.8); Eosinophils % 0.1 % (0.00-10.9); Hematocrit 38.6 VOL% (42.0-52.0); Hemoglobin 12.1 GM/DL (14.0-18.0); Immature Granulocytes % 0.4 %; Immature Granulocytes Absolute 0.04 #; Lymphocytes # 0.9 10*3/uL (1.4-4.0); Mean Corpuscular HGB Conc 31.3 GM/DL (32-36); Mean Corpuscular Volume 88.1 FL (87-102); Mean Platelet Volume 9.8 FL (9.6-12.0); Monocytes % 5.7 % (1.7-12.7); Neutrophils % 85.7 % (38.7-73.9); Platelet Count 209 T/CUMM (130-400); Red Blood Count 4.38 MC/CUMM (3.8-5.5); Red Cell Distribution Width 15.6 % (9.3-17.3); White Blood Count 11.4 T/CUMM (4-12)
[2020-05-14 05:33] LABS: Albumin 2.6 G/DL (3.4-5.0); Bilirubin,Total 2.5 MG/DL (0.2-1.0); Calcium 9.2 MG/DL (8.5-10.1); Osmolality,Calculated 277.8 MOS/KG (273-304); Potassium 4.1 MMOL/L (3.5-5.1); Total Protein 6.7 G/DL (6.4-8.2)
[2020-05-14] MEDS: THIAMINE 100 MG TABLET PO SCH (08:15)
[2020-05-14] MEDS: SUCRALFATE 1 GM/10 ML UDCUP PO SCH ×4 (08:15→20:14)
[2020-05-14] MEDS: FUROSEMIDE 40 MG TABLET PO SCH (08:15)
[2020-05-14] MEDS: MULTIVITAMIN (BEROCCA) TABLET PO SCH (08:15)
[2020-05-14] MEDS: ASPIRIN CHEW 81 MG TABLET PO SCH (08:18)
[2020-05-14] MEDS: ENOXAPARIN 40 MG/0.4 ML SYRINGE SUBCUT SCH (08:18)
[2020-05-14] MEDS: POLYETHYLENE GLYCOL POWDER 17 GM PACK PO SCH (08:18)
[2020-05-14] MEDS: FOLIC ACID 1 MG TABLET PO SCH (08:18)
[2020-05-14] MEDS: FAMOTIDINE 8 MG/ML 50 ML/BOTTLE PO SCH ×2 (08:19→22:15)
[2020-05-14] MEDS: carvediloL 6.25 MG TABLET PO SCH ×2 (09:57→18:26)
[2020-05-14] MEDS: predniSONE 20 MG TABLET PO SCH (12:21)
[2020-05-14] MEDS: QUEtiapine 25 MG TABLET PO SCH ×2 (14:17→20:15)
[2020-05-14] MEDS: fentaNYL 50 MCG/HR PATCH TRANSDERM SCH (14:18)
[2020-05-14] MEDS: LORazepam 1 MG TABLET PO PRN (20:15)
[2020-05-15] MEDS: INSULIN REGULAR 100 UNIT/ML SUBCUT SCH ×4 (00:05→17:35)
[2020-05-15] MEDS: LEVALBUTEROL 0.63 MG/3 ML NEB RESP TX SCH ×5 (03:11→19:40)
[2020-05-15] MEDS: LACTULOSE 20 GM/30 ML UDCUP PO SCH ×3 (04:03→18:18)
[2020-05-15] MEDS: FOLIC ACID 1 MG TABLET PO SCH (08:13)
[2020-05-15] MEDS: LORazepam 1 MG TABLET PO PRN ×3 (08:13→21:34)
[2020-05-15] MEDS: ASPIRIN CHEW 81 MG TABLET PO SCH (08:13)
[2020-05-15] MEDS: FUROSEMIDE 40 MG TABLET PO SCH (08:14)
[2020-05-15] MEDS: ENOXAPARIN 40 MG/0.4 ML SYRINGE SUBCUT SCH (08:14)
[2020-05-15] MEDS: THIAMINE 100 MG TABLET PO SCH (08:14)
[2020-05-15] MEDS: POLYETHYLENE GLYCOL POWDER 17 GM PACK PO SCH (08:14)
[2020-05-15] MEDS: BENZONATATE 100 MG CAPSULE PO PRN (08:14)
[2020-05-15] MEDS: QUEtiapine 25 MG TABLET PO SCH ×2 (08:14→20:35)
[2020-05-15] MEDS: SUCRALFATE 1 GM/10 ML UDCUP PO SCH ×4 (08:14→20:35)
[2020-05-15] MEDS: MULTIVITAMIN (BEROCCA) TABLET PO SCH (08:14)
[2020-05-15] MEDS: carvediloL 6.25 MG TABLET PO SCH ×2 (08:14→16:00)
[2020-05-15] MEDS: FAMOTIDINE 8 MG/ML 50 ML/BOTTLE PO SCH ×2 (08:15→20:35)
[2020-05-15] MEDS: predniSONE 20 MG TABLET PO SCH (10:31)
[2020-05-16] MEDS: LEVALBUTEROL 0.63 MG/3 ML NEB RESP TX SCH ×7 (00:42→23:30)
[2020-05-16] MEDS: INSULIN REGULAR 100 UNIT/ML SUBCUT SCH ×4 (01:22→19:11)
[2020-05-16] MEDS: LACTULOSE 20 GM/30 ML UDCUP PO SCH ×3 (03:15→20:15)
[2020-05-16] MEDS: LORazepam 1 MG TABLET PO PRN ×4 (04:48→21:39)
[2020-05-16 05:20] LABS: Basophils # 0.1 10*3/uL (0.0-0.2); Basophils % 0.4 % (0.0-0.8); Eosinophils # 0.1 10*3/uL (0.0-0.87); Eosinophils % 0.6 % (0.00-10.9); Hematocrit 42.4 VOL% (42.0-52.0); Hemoglobin 13.5 GM/DL (14.0-18.0); Immature Granulocytes % 0.9 %; Immature Granulocytes Absolute 0.12 #; Lymphocytes # 2.3 10*3/uL (1.4-4.0); Lymphocytes % 17.6 % (21.2-54.2); Mean Corpuscular HGB Conc 31.8 GM/DL (32-36); Mean Corpuscular Volume 86.5 FL (87-102); Mean Platelet Volume 9.3 FL (9.6-12.0); Neutrophils % 72.5 % (38.7-73.9); Platelet Count 326 T/CUMM (130-400); Red Cell Distribution Width 15.4 % (9.3-17.3); White Blood Count 13.1 T/CUMM (4-12)
[2020-05-16 05:36] LABS: Albumin 2.8 G/DL (3.4-5.0); Bilirubin,Total 2.3 MG/DL (0.2-1.0); Calcium 8.9 MG/DL (8.5-10.1); Osmolality,Calculated 279.5 MOS/KG (273-304); Potassium 4.2 MMOL/L (3.5-5.1); Total Protein 6.8 G/DL (6.4-8.2)
[2020-05-16] MEDS: SUCRALFATE 1 GM/10 ML UDCUP PO SCH ×4 (10:04→21:39)
[2020-05-16] MEDS: carvediloL 6.25 MG TABLET PO SCH ×2 (10:06→16:47)
[2020-05-16] MEDS: FUROSEMIDE 40 MG TABLET PO SCH (10:06)
[2020-05-16] MEDS: POLYETHYLENE GLYCOL POWDER 17 GM PACK PO SCH (10:06)
[2020-05-16] MEDS: THIAMINE 100 MG TABLET PO SCH (10:06)
[2020-05-16] MEDS: FOLIC ACID 1 MG TABLET PO SCH (10:06)
[2020-05-16] MEDS: ASPIRIN CHEW 81 MG TABLET PO SCH (10:06)
[2020-05-16] MEDS: ENOXAPARIN 40 MG/0.4 ML SYRINGE SUBCUT SCH (10:07)
[2020-05-16] MEDS: MULTIVITAMIN (BEROCCA) TABLET PO SCH (10:07)
[2020-05-16] MEDS: QUEtiapine 25 MG TABLET PO SCH ×2 (10:08→21:39)
[2020-05-16] MEDS: FAMOTIDINE 8 MG/ML 50 ML/BOTTLE PO SCH ×2 (12:38→21:39)
[2020-05-16] MEDS: predniSONE 20 MG TABLET PO SCH (12:38)
[2020-05-16] MEDS: HALOPERIDOL 5 MG/ML AMP IM PRN ×2 (17:09→21:38)
[2020-05-17] MEDS: INSULIN REGULAR 100 UNIT/ML SUBCUT SCH ×4 (01:39→17:40)
[2020-05-17] MEDS: HALOPERIDOL 5 MG/ML AMP IM PRN ×4 (02:26→21:35)
[2020-05-17] MEDS: LACTULOSE 20 GM/30 ML UDCUP PO SCH ×3 (03:14→18:29)
[2020-05-17] MEDS: LEVALBUTEROL 0.63 MG/3 ML NEB RESP TX SCH ×6 (03:50→23:00)
[2020-05-17 06:04] LABS: Basophils % 0.1 % (0.0-0.8); Eosinophils # 0.1 10*3/uL (0.0-0.87); Eosinophils % 0.4 % (0.00-10.9); Hematocrit 40.2 VOL% (42.0-52.0); Hemoglobin 12.6 GM/DL (14.0-18.0); Immature Granulocytes % 0.8 %; Immature Granulocytes Absolute 0.09 #; Lymphocytes # 2.2 10*3/uL (1.4-4.0); Lymphocytes % 18.6 % (21.2-54.2); Mean Corpuscular HGB Conc 31.3 GM/DL (32-36); Mean Corpuscular Volume 87.4 FL (87-102); Mean Platelet Volume 8.9 FL (9.6-12.0); Monocytes % 8.9 % (1.7-12.7); Neutrophils % 71.2 % (38.7-73.9); Platelet Count 314 T/CUMM (130-400); Red Cell Distribution Width 15.7 % (9.3-17.3); White Blood Count 11.7 T/CUMM (4-12)
[2020-05-17 06:36] LABS: Albumin 2.6 G/DL (3.4-5.0); Bilirubin,Total 1.6 MG/DL (0.2-1.0); Calcium 8.5 MG/DL (8.5-10.1); Osmolality,Calculated 285.1 MOS/KG (273-304); Potassium 3.7 MMOL/L (3.5-5.1); Total Protein 6.3 G/DL (6.4-8.2)
[2020-05-17] MEDS: FUROSEMIDE 20 MG TABLET PO SCH (08:38)
[2020-05-17] MEDS: carvediloL 6.25 MG TABLET PO SCH ×2 (08:38→17:35)
[2020-05-17] MEDS: MULTIVITAMIN (BEROCCA) TABLET PO SCH (08:38)
[2020-05-17] MEDS: QUEtiapine 25 MG TABLET PO SCH ×2 (08:38→21:35)
[2020-05-17] MEDS: ASPIRIN CHEW 81 MG TABLET PO SCH (08:38)
[2020-05-17] MEDS: THIAMINE 100 MG TABLET PO SCH (08:38)
[2020-05-17] MEDS: FOLIC ACID 1 MG TABLET PO SCH (08:38)
[2020-05-17] MEDS: SUCRALFATE 1 GM/10 ML UDCUP PO SCH ×4 (08:40→21:35)
[2020-05-17] MEDS: ENOXAPARIN 40 MG/0.4 ML SYRINGE SUBCUT SCH (08:42)
[2020-05-17] MEDS: FAMOTIDINE 8 MG/ML 50 ML/BOTTLE PO SCH ×2 (08:44→21:35)
[2020-05-17] MEDS: POLYETHYLENE GLYCOL POWDER 17 GM PACK PO SCH (08:44)
[2020-05-17] MEDS: predniSONE 20 MG TABLET PO SCH (10:15)
[2020-05-17] MEDS: LORazepam 1 MG TABLET PO PRN (21:35)
[2020-05-18] MEDS: INSULIN REGULAR 100 UNIT/ML SUBCUT SCH ×5 (00:41→23:57)
[2020-05-18] MEDS: HALOPERIDOL 5 MG/ML AMP IM PRN ×4 (00:41→15:56)
[2020-05-18] MEDS ORDERED: LORazepam 2 MG/1 ML VIAL ONE ×2 (03:06→05:27)
[2020-05-18] MEDS: LORazepam 2 MG/1 ML VIAL IV PRN ×2 (03:20→05:42)
[2020-05-18] MEDS: LEVALBUTEROL 0.63 MG/3 ML NEB RESP TX SCH ×5 (04:23→19:48)
[2020-05-18] MEDS: LACTULOSE 20 GM/30 ML UDCUP PO SCH ×3 (06:03→18:20)
[2020-05-18] MEDS: ENOXAPARIN 40 MG/0.4 ML SYRINGE SUBCUT SCH ×2 (08:48→10:33)
[2020-05-18] MEDS: SUCRALFATE 1 GM/10 ML UDCUP PO SCH ×4 (08:48→21:17)
[2020-05-18] MEDS: carvediloL 6.25 MG TABLET PO SCH ×3 (08:48→16:02)
[2020-05-18] MEDS: POLYETHYLENE GLYCOL POWDER 17 GM PACK PO SCH (08:49)
[2020-05-18] MEDS: ASPIRIN CHEW 81 MG TABLET PO SCH (08:49)
[2020-05-18] MEDS: FAMOTIDINE 8 MG/ML 50 ML/BOTTLE PO SCH ×2 (08:49→21:17)
[2020-05-18] MEDS: QUEtiapine 25 MG TABLET PO SCH ×2 (08:49→21:16)
[2020-05-18] MEDS: MULTIVITAMIN (BEROCCA) TABLET PO SCH (08:49)
[2020-05-18] MEDS: FUROSEMIDE 20 MG TABLET PO SCH (08:49)
[2020-05-18] MEDS: THIAMINE 100 MG TABLET PO SCH (08:49)
[2020-05-18] MEDS: FOLIC ACID 1 MG TABLET PO SCH (08:49)
[2020-05-18] MEDS: predniSONE 20 MG TABLET PO SCH (10:32)
[2020-05-18 14:51] LABS: Basophils % 0.3 % (0.0-0.8); Eosinophils # 0.2 10*3/uL (0.0-0.87); Eosinophils % 1.1 % (0.00-10.9); Hematocrit 38.6 VOL% (42.0-52.0); Hemoglobin 12.5 GM/DL (14.0-18.0); Immature Granulocytes % 0.8 %; Immature Granulocytes Absolute 0.12 #; Lymphocytes # 2.2 10*3/uL (1.4-4.0); Lymphocytes % 14.4 % (21.2-54.2); Mean Corpuscular HGB Conc 32.4 GM/DL (32-36); Mean Platelet Volume 8.7 FL (9.6-12.0); Monocytes % 8.7 % (1.7-12.7); Neutrophils % 74.7 % (38.7-73.9); Platelet Count 336 T/CUMM (130-400); Red Blood Count 4.54 MC/CUMM (3.8-5.5); Red Cell Distribution Width 15.7 % (9.3-17.3)
[2020-05-18 15:28] LABS: Albumin 2.7 G/DL (3.4-5.0); Calcium 8.8 MG/DL (8.5-10.1); Osmolality,Calculated 281.3 MOS/KG (273-304); Potassium 3.7 MMOL/L (3.5-5.1); Total Protein 6.4 G/DL (6.4-8.2)
[2020-05-18 15:29] LABS: Bilirubin,Urine Negative (Negative); Blood, Urine Small mg/dL (Negative); Glucose,Urine (UA) Negative (Negative); Ketones,Urine Negative (Negative); Mucus,Urine Occasional /LPF (Occasional); Nitrite,Urine Negative (Negative); Protein,Urine Negative; RBC,Urine 18 /HPF (0-4); Urine Appearance Slightly Hazy (Clear); Urine Color Yellow (Yellow); Urine Urobilinogen < 2.0 EU/DL (0.2-1.0); WBC,Urine 84 /HPF (0-6)
[2020-05-18 15:54] LABS: Barbiturates Screen,Urine Negative (Negative); Benzodiazepines Screen,Urine Positive (Negative); Cannabinoid Screen,Urine Positive (Negative); Opiate Screen,Urine Negative (Negative); Phencyclidine Screen,Urine Negative (Negative)
[2020-05-19] MEDS: LEVALBUTEROL 0.63 MG/3 ML NEB RESP TX SCH ×7 (00:06→23:19)
[2020-05-19] MEDS: LORazepam 2 MG/1 ML VIAL IV PRN ×4 (01:14→22:27)
[2020-05-19] MEDS: LACTULOSE 20 GM/30 ML UDCUP PO SCH ×3 (02:06→18:23)
[2020-05-19] MEDS: INSULIN REGULAR 100 UNIT/ML SUBCUT SCH ×3 (05:31→18:23)
[2020-05-19] MEDS: HALOPERIDOL 5 MG/ML AMP IM PRN (07:06)
[2020-05-19] MEDS: carvediloL 6.25 MG TABLET PO SCH ×2 (09:09→18:23)
[2020-05-19] MEDS: ASPIRIN CHEW 81 MG TABLET PO SCH (09:09)
[2020-05-19] MEDS: MULTIVITAMIN (BEROCCA) TABLET PO SCH (09:09)
[2020-05-19] MEDS: SUCRALFATE 1 GM/10 ML UDCUP PO SCH ×4 (09:09→20:20)
[2020-05-19] MEDS: FAMOTIDINE 8 MG/ML 50 ML/BOTTLE PO SCH ×2 (09:10→20:20)
[2020-05-19] MEDS: POLYETHYLENE GLYCOL POWDER 17 GM PACK PO SCH (09:10)
[2020-05-19] MEDS: QUEtiapine 25 MG TABLET PO SCH ×2 (09:10→20:21)
[2020-05-19] MEDS: THIAMINE 100 MG TABLET PO SCH (09:10)
[2020-05-19] MEDS: FUROSEMIDE 20 MG TABLET PO SCH (09:10)
[2020-05-19] MEDS: ENOXAPARIN 40 MG/0.4 ML SYRINGE SUBCUT SCH (09:10)
[2020-05-19] MEDS: FOLIC ACID 1 MG TABLET PO SCH (09:10)
[2020-05-19 11:09] LABS: Allen Test Positive
[2020-05-19 11:10] LABS: ABG Base Excess 0.1 MMOL/L (-2.5-2.5); ABG HCO3 24.6 MMOL/L (20-26); ABG Oxygen Saturation 98.7 % (95-100); ABG PCO2 27.4 MM HG (35-48); ABG PH 7.511 (7.35-7.45); ABG TCO2 19.1 MMOL/L (23-27)
[2020-05-19 11:25] LABS: Basophils % 0.2 % (0.0-0.8); Eosinophils % 0.1 % (0.00-10.9); Hematocrit 38.6 VOL% (42.0-52.0); Hemoglobin 12.6 GM/DL (14.0-18.0); Immature Granulocytes % 1.1 %; Immature Granulocytes Absolute 0.18 #; Lymphocytes # 1.4 10*3/uL (1.4-4.0); Lymphocytes % 8.1 % (21.2-54.2); Mean Corpuscular HGB Conc 32.6 GM/DL (32-36); Mean Corpuscular Volume 84.6 FL (87-102); Mean Platelet Volume 9.3 FL (9.6-12.0); Monocytes % 10.3 % (1.7-12.7); Neutrophils % 80.2 % (38.7-73.9); Platelet Count 348 T/CUMM (130-400); Red Blood Count 4.56 MC/CUMM (3.8-5.5); Red Cell Distribution Width 15.9 % (9.3-17.3); White Blood Count 17.1 T/CUMM (4-12)
[2020-05-19] MEDS: predniSONE 20 MG TABLET PO SCH (11:32)
[2020-05-19 11:42] LABS: Osmolality,Calculated 272.8 MOS/KG (273-304); Potassium 3.9 MMOL/L (3.5-5.1)
[2020-05-19 11:46] LABS: Lactic Acid 2.3 MMOL/L (0.4-2.0)
[2020-05-19] MEDS ORDERED: LACTATED RINGERS 1,000 ML IV ONE (11:51)
[2020-05-19] MEDS: cefTRIAXone 1,000 MG in SYRINGE 10 EACH IV SCH (12:01)
[2020-05-19] MEDS: ACETAMINOPHEN 325 MG TABLET PO PRN (12:18)
[2020-05-19] MEDS ORDERED: methylPREDNISolone SOD SUC 125 MG/2 ML VIAL IV ONE (12:37)
[2020-05-19] MEDS ORDERED: diphenhydrAMINE 50 MG/1 ML VIAL IV ONE (12:38)
[2020-05-19 12:40] LABS: Barbiturates Screen,Urine Positive (Negative); Benzodiazepines Screen,Urine Positive (Negative); Cannabinoid Screen,Urine Positive (Negative); Opiate Screen,Urine Negative (Negative); Phencyclidine Screen,Urine Negative (Negative)
[2020-05-19] MEDS ORDERED: LORazepam 2 MG/1 ML VIAL IV ONE (12:58)
[2020-05-20] MEDS: LORazepam 2 MG/1 ML VIAL IV PRN ×3 (00:20→16:27)
[2020-05-20] MEDS: INSULIN REGULAR 100 UNIT/ML SUBCUT SCH ×5 (00:40→21:00)
[2020-05-20] MEDS: LACTULOSE 20 GM/30 ML UDCUP PO SCH ×3 (02:51→18:13)
[2020-05-20] MEDS: LEVALBUTEROL 0.63 MG/3 ML NEB RESP TX SCH ×5 (03:01→20:21)
[2020-05-20 05:18] LABS: Basophils % 0.1 % (0.0-0.8); Hemoglobin 13.3 GM/DL (14.0-18.0); Immature Granulocytes Absolute 0.17 #; Lymphocytes # 1.1 10*3/uL (1.4-4.0); Lymphocytes % 6.1 % (21.2-54.2); Mean Corpuscular HGB Conc 31.7 GM/DL (32-36); Mean Corpuscular Volume 87.3 FL (87-102); Monocytes % 3.1 % (1.7-12.7); Neutrophils % 89.7 % (38.7-73.9); Platelet Count 306 T/CUMM (130-400); Red Blood Count 4.81 MC/CUMM (3.8-5.5); Red Cell Distribution Width 16.1 % (9.3-17.3); White Blood Count 17.4 T/CUMM (4-12)
[2020-05-20 06:01] LABS: Albumin 2.7 G/DL (3.4-5.0); Bilirubin,Total 2.6 MG/DL (0.2-1.0); Calcium 9.5 MG/DL (8.5-10.1); Osmolality,Calculated 282.3 MOS/KG (273-304); Total Protein 6.5 G/DL (6.4-8.2)
[2020-05-20] MEDS: POLYETHYLENE GLYCOL POWDER 17 GM PACK PO SCH (09:12)
[2020-05-20] MEDS: ASPIRIN CHEW 81 MG TABLET PO SCH (09:12)
[2020-05-20] MEDS: THIAMINE 100 MG TABLET PO SCH (09:12)
[2020-05-20] MEDS: MULTIVITAMIN (BEROCCA) TABLET PO SCH (09:12)
[2020-05-20] MEDS: FUROSEMIDE 20 MG TABLET PO SCH (09:12)
[2020-05-20] MEDS: carvediloL 6.25 MG TABLET PO SCH (09:13)
[2020-05-20] MEDS: FOLIC ACID 1 MG TABLET PO SCH (09:13)
[2020-05-20] MEDS: QUEtiapine 25 MG TABLET PO SCH ×2 (09:14→20:59)
[2020-05-20] MEDS: ENOXAPARIN 40 MG/0.4 ML SYRINGE SUBCUT SCH (09:14)
[2020-05-20] MEDS: SUCRALFATE 1 GM/10 ML UDCUP PO SCH ×4 (09:15→21:00)
[2020-05-20] MEDS: FAMOTIDINE 8 MG/ML 50 ML/BOTTLE PO SCH ×2 (09:15→21:00)
[2020-05-20] MEDS: cefTRIAXone 1,000 MG in SYRINGE 10 EACH IV SCH (12:26)
[2020-05-20] MEDS: predniSONE 20 MG TABLET PO SCH (12:26)
[2020-05-20] MEDS ORDERED: SKIN HEALING OINT (AQUAPHOR) 50 GM TUBE TOP PRN (12:51)
[2020-05-20] MEDS: guaiFENesin 200 MG/10 ML UDCUP PO PRN (16:27)
[2020-05-21] MEDS: guaiFENesin 200 MG/10 ML UDCUP PO PRN (00:27)
[2020-05-21] MEDS: LACTULOSE 20 GM/30 ML UDCUP PO SCH ×3 (02:24→18:06)
[2020-05-21] MEDS: LORazepam 2 MG/1 ML VIAL IV PRN (03:08)
[2020-05-21] MEDS: LEVALBUTEROL 0.63 MG/3 ML NEB RESP TX SCH ×6 (04:04→19:40)
[2020-05-21 06:24] LABS: Basophils % 0.1 % (0.0-0.8); Hematocrit 38.9 VOL% (42.0-52.0); Hemoglobin 12.8 GM/DL (14.0-18.0); Immature Granulocytes % 0.6 %; Lymphocytes # 2.6 10*3/uL (1.4-4.0); Lymphocytes % 15.5 % (21.2-54.2); Mean Corpuscular HGB Conc 32.9 GM/DL (32-36); Mean Corpuscular Volume 85.1 FL (87-102); Mean Platelet Volume 9.4 FL (9.6-12.0); Monocytes % 6.9 % (1.7-12.7); Neutrophils % 76.9 % (38.7-73.9); Platelet Count 338 T/CUMM (130-400); Red Blood Count 4.57 MC/CUMM (3.8-5.5); Red Cell Distribution Width 16.3 % (9.3-17.3); White Blood Count 16.9 T/CUMM (4-12)
[2020-05-21 06:39] LABS: Bilirubin,Total 1.9 MG/DL (0.2-1.0); Calcium 9.2 MG/DL (8.5-10.1); Osmolality,Calculated 280.4 MOS/KG (273-304); Total Protein 7.1 G/DL (6.4-8.2)
[2020-05-21] MEDS: INSULIN REGULAR 100 UNIT/ML SUBCUT SCH ×4 (07:31→20:56)
[2020-05-21] MEDS: SUCRALFATE 1 GM/10 ML UDCUP PO SCH ×4 (07:32→20:55)
[2020-05-21] MEDS: FOLIC ACID 1 MG TABLET PO SCH (08:56)
[2020-05-21] MEDS: QUEtiapine 25 MG TABLET PO SCH ×2 (08:57→20:56)
[2020-05-21] MEDS: THIAMINE 100 MG TABLET PO SCH (08:57)
[2020-05-21] MEDS: ASPIRIN CHEW 81 MG TABLET PO SCH (08:57)
[2020-05-21] MEDS: ENOXAPARIN 40 MG/0.4 ML SYRINGE SUBCUT SCH (08:57)
[2020-05-21] MEDS: POLYETHYLENE GLYCOL POWDER 17 GM PACK PO SCH (08:57)
[2020-05-21] MEDS: FUROSEMIDE 20 MG TABLET PO SCH (08:57)
[2020-05-21] MEDS: MULTIVITAMIN (BEROCCA) TABLET PO SCH (08:57)
[2020-05-21] MEDS: FAMOTIDINE 8 MG/ML 50 ML/BOTTLE PO SCH ×2 (08:58→20:58)
[2020-05-21] MEDS: cefTRIAXone 1,000 MG in SYRINGE 1 EACH IV SCH (11:52)
[2020-05-21] MEDS: predniSONE 20 MG TABLET PO SCH (11:56)
[2020-05-22] MEDS: LEVALBUTEROL 0.63 MG/3 ML NEB RESP TX SCH ×3 (01:56→06:46)
[2020-05-22] MEDS: LACTULOSE 20 GM/30 ML UDCUP PO SCH ×3 (03:31→19:40)
[2020-05-22 06:28] LABS: Basophils % 0.2 % (0.0-0.8); Eosinophils % 0.2 % (0.00-10.9); Hematocrit 39.1 VOL% (42.0-52.0); Hemoglobin 12.5 GM/DL (14.0-18.0); Immature Granulocytes % 0.6 %; Immature Granulocytes Absolute 0.07 #; Lymphocytes # 2.2 10*3/uL (1.4-4.0); Mean Corpuscular Volume 85.2 FL (87-102); Mean Platelet Volume 9.5 FL (9.6-12.0); Monocytes % 7.1 % (1.7-12.7); Neutrophils % 73.9 % (38.7-73.9); Platelet Count 350 T/CUMM (130-400); Red Blood Count 4.59 MC/CUMM (3.8-5.5); Red Cell Distribution Width 16.3 % (9.3-17.3); White Blood Count 12.2 T/CUMM (4-12)
[2020-05-22 06:48] LABS: Albumin 2.9 G/DL (3.4-5.0); Bilirubin,Total 2.1 MG/DL (0.2-1.0); Calcium 9.2 MG/DL (8.5-10.1); Potassium 3.6 MMOL/L (3.5-5.1)
[2020-05-22] MEDS ORDERED: HALOPERIDOL 5 MG/ML AMP IM ONE (07:42)
[2020-05-22] MEDS ORDERED: HALOPERIDOL 5 MG/ML AMP IM PRN (07:48)
[2020-05-22] MEDS: QUEtiapine 25 MG TABLET PO SCH ×2 (08:29→20:39)
[2020-05-22] MEDS: HALOPERIDOL 5 MG TABLET PO SCH ×3 (10:48→20:39)
[2020-05-22] MEDS: SUCRALFATE 1 GM/10 ML UDCUP PO SCH ×4 (12:20→20:39)
[2020-05-22] MEDS: MULTIVITAMIN (BEROCCA) TABLET PO SCH (12:20)
[2020-05-22] MEDS: INSULIN REGULAR 100 UNIT/ML SUBCUT SCH ×4 (12:20→20:39)
[2020-05-22] MEDS: FOLIC ACID 1 MG TABLET PO SCH (12:20)
[2020-05-22] MEDS: ASPIRIN CHEW 81 MG TABLET PO SCH (12:20)
[2020-05-22] MEDS: POLYETHYLENE GLYCOL POWDER 17 GM PACK PO SCH (12:21)
[2020-05-22] MEDS: FAMOTIDINE 8 MG/ML 50 ML/BOTTLE PO SCH ×2 (12:21→20:39)
[2020-05-22] MEDS: ENOXAPARIN 40 MG/0.4 ML SYRINGE SUBCUT SCH (12:21)
[2020-05-22] MEDS: FUROSEMIDE 20 MG TABLET PO SCH (12:21)
[2020-05-22] MEDS: predniSONE 20 MG TABLET PO SCH (12:21)
[2020-05-22] MEDS: THIAMINE 100 MG TABLET PO SCH (12:22)
[2020-05-22] MEDS: cefTRIAXone 1,000 MG in SYRINGE 1 EACH IV SCH (12:31)
[2020-05-23] MEDS: LACTULOSE 20 GM/30 ML UDCUP PO SCH (02:45)
[2020-05-23 07:34] VITALS: BP 139/98
[2020-05-23] MEDS: HALOPERIDOL 5 MG TABLET PO SCH (08:17)
[2020-05-23] MEDS: MULTIVITAMIN (BEROCCA) TABLET PO SCH (08:18)
[2020-05-23] MEDS: ASPIRIN CHEW 81 MG TABLET PO SCH (08:18)
[2020-05-23] MEDS: FOLIC ACID 1 MG TABLET PO SCH (08:18)
[2020-05-23] MEDS: QUEtiapine 25 MG TABLET PO SCH (08:18)
[2020-05-23] MEDS: FUROSEMIDE 20 MG TABLET PO SCH (08:18)
[2020-05-23] MEDS: THIAMINE 100 MG TABLET PO SCH (08:19)
[2020-05-23] MEDS: SUCRALFATE 1 GM/10 ML UDCUP PO SCH (08:19)
[2020-05-23] MEDS: INSULIN REGULAR 100 UNIT/ML SUBCUT SCH (08:21)
[2020-05-23] MEDS: ENOXAPARIN 40 MG/0.4 ML SYRINGE SUBCUT SCH (08:21)
[2020-05-23] MEDS: predniSONE 20 MG TABLET PO SCH (08:22)
[2020-05-23] MEDS: POLYETHYLENE GLYCOL POWDER 17 GM PACK PO SCH (08:22)
[2020-05-23] MEDS: FAMOTIDINE 8 MG/ML 50 ML/BOTTLE PO SCH (08:22)
== END 2020-05-23 10:24 | disposition home or self-care (01) | DRG 194 ==
LOC: N.ED 00:10 → N.EDINP 02:26 → SUATTDRO 02:26 → N.TELES 13:40 → N.ICU 04-29 02:39 → N.TELEN 05-01 10:09 → N.CC 05-10 04:34 → N.TELES 05-14 19:13 → N.CC 05-19 11:25 → N.5E 05-20 14:01
PROVIDERS: ADMIT Internal Medicine; ATTEND Phlebology

== ENCOUNTER 2021-05-18 22:34 | Observation (INO) ==
[2021-05-18] MEDS ORDERED: ASPIRIN 325 MG TABLET PO STA (23:30)
[2021-05-18] MEDS ORDERED: ONDANSETRON 4 MG/2 ML VIAL IV STA (23:30)
[2021-05-18] MEDS ORDERED: ENOXAPARIN 100 MG/ML SYRINGE SUBCUT STA (23:30)
[2021-05-18] MEDS ORDERED: NITROGLYCERIN 2% OINT 1 INCH/GM PACK TOP STA (23:30)
[2021-05-18] MEDS ORDERED: MORPHINE 2 MG/1 ML SYRINGE IV STA (23:30)
[2021-05-18 23:36] LABS: Basophils # 0.1 10*3/uL (0.0-0.2); Basophils % 0.5 % (0.0-0.8); Eosinophils # 0.2 10*3/uL (0.0-0.87); Eosinophils % 1.7 % (0.00-10.9); Hematocrit 43.6 VOL% (42.0-52.0); Hemoglobin 15.6 GM/DL (14.0-18.0); Immature Granulocytes % 0.3 %; Immature Granulocytes Absolute 0.03 #; Lymphocytes # 3.1 10*3/uL (1.4-4.0); Lymphocytes % 28.3 % (21.2-54.2); Mean Corpuscular HGB Conc 35.8 GM/DL (32-36); Mean Corpuscular Volume 84.3 FL (87-102); Monocytes % 9.3 % (1.7-12.7); Neutrophils % 59.9 % (38.7-73.9); Platelet Count 257 T/CUMM (130-400); Red Blood Count 5.17 MC/CUMM (3.8-5.5); Red Cell Distribution Width 13.1 % (9.3-17.3); White Blood Count 10.9 T/CUMM (4-12)
[2021-05-18 23:50] LABS: Alanine Aminotransferase 102 U/L (16-61); Albumin 3.3 G/DL (3.4-5.0); Alkaline Phosphatase 178 U/L (45-117); Aspartate Amino Transferase 54 U/L (0-37); Bilirubin,Total < 0.39 MG/DL (0.20-1.00); Blood Urea Nitrogen 13 MG/DL (7-18); Calcium 9.6 MG/DL (8.5-10.1); Carbon Dioxide 31 MMOL/L (21-32); Estimated Glom Filtration Rate 110 ML/MIN; Glucose 127 MG/DL (74-106); Osmolality,Calculated 282.3 MOS/KG (273-304); Potassium 3.2 MMOL/L (3.5-5.1); Sodium 141 MMOL/L (136-145); Total Protein 7.5 G/DL (6.4-8.2)
[2021-05-19] MEDS ORDERED: MORPHINE 2 MG/1 ML SYRINGE IV PRN (00:05)
[2021-05-19] MEDS ORDERED: ONDANSETRON 4 MG/2 ML VIAL IV PRN (00:05)
[2021-05-19] MEDS ORDERED: ACETAMINOPHEN 325 MG TABLET PO PRN (00:05)
[2021-05-19] MEDS ORDERED: GLUCAGON 1 MG VIAL IM PRN (00:05)
[2021-05-19 00:08] LABS: INR 0.9; PT Patient Result 10.3 SECS (10.5-12.0); Partial Thromboplastin Time 20.2 SECS (23.8-32.1)
[2021-05-19] MEDS ORDERED: DEXTROSE 10% 250 ML BAG IV PRN (00:22)
[2021-05-19 02:36] LABS: Barbiturates Screen,Urine Negative (Negative); Benzodiazepines Screen,Urine Negative (Negative); Cannabinoid Screen,Urine Positive (Negative); Opiate Screen,Urine Positive (Negative); Phencyclidine Screen,Urine Negative (Negative)
[2021-05-19] MEDS: POTASSIUM CHLORIDE 20 MEQ TABLET PO PRN ×3 (06:17→14:25)
[2021-05-19 07:44] LABS: Basophils # 0.1 10*3/uL (0.0-0.2); Basophils % 0.6 % (0.0-0.8); Eosinophils # 0.2 10*3/uL (0.0-0.87); Eosinophils % 1.9 % (0.00-10.9); Hematocrit 41.3 VOL% (42.0-52.0); Hemoglobin 14.9 GM/DL (14.0-18.0); Immature Granulocytes % 0.7 %; Immature Granulocytes Absolute 0.06 #; Lymphocytes # 3.1 10*3/uL (1.4-4.0); Mean Corpuscular HGB Conc 36.1 GM/DL (32-36); Mean Corpuscular Volume 84.8 FL (87-102); Mean Platelet Volume 9.3 FL (9.6-12.0); Monocytes % 9.1 % (1.7-12.7); Neutrophils % 53.7 % (38.7-73.9); Platelet Count 310 T/CUMM (130-400); Red Blood Count 4.87 MC/CUMM (3.8-5.5); Red Cell Distribution Width 13.2 % (9.3-17.3)
[2021-05-19] MEDS ORDERED: POTASSIUM CHLORIDE 20 MEQ TABLET PO PRN ×2 (07:55→07:59)
[2021-05-19] MEDS ORDERED: FUROSEMIDE 40 MG TABLET PO SCH (08:00)
[2021-05-19 08:18] LABS: Alanine Aminotransferase 104 U/L (16-61); Albumin 2.9 G/DL (3.4-5.0); Alkaline Phosphatase 156 U/L (45-117); Aspartate Amino Transferase 52 U/L (0-37); Bilirubin,Total < 0.39 MG/DL (0.20-1.00); Blood Urea Nitrogen 12 MG/DL (7-18); Calcium 8.4 MG/DL (8.5-10.1); Carbon Dioxide 31 MMOL/L (21-32); Estimated Glom Filtration Rate 122 ML/MIN; Glucose 122 MG/DL (74-106); Osmolality,Calculated 279.4 MOS/KG (273-304); Potassium 2.8 MMOL/L (3.5-5.1); Sodium 140 MMOL/L (136-145); Total Protein 6.4 G/DL (6.4-8.2)
[2021-05-19] MEDS: HALOPERIDOL 5 MG TABLET PO SCH ×2 (08:33→14:25)
[2021-05-19] MEDS ORDERED: carvediloL 6.25 MG TABLET PO SCH (09:00)
[2021-05-19] MEDS ORDERED: QUEtiapine 25 MG TABLET PO SCH (09:00)
[2021-05-19] MEDS ORDERED: PANTOPRAZOLE 40 MG TABLET PO SCH (09:00)
[2021-05-19] MEDS ORDERED: ASPIRIN CHEW 81 MG TABLET PO SCH (09:00)
[2021-05-19 12:09] VITALS: BP 122/78
[2021-05-20] MEDS ORDERED: ENOXAPARIN 40 MG/0.4 ML SYRINGE SUBCUT SCH (09:00)
== END 2021-05-19 14:50 | disposition home or self-care (01) ==
LOC: N.EDINP 22:34 → N.ED 22:34 → SUATTDRO 05-19 00:05 → N.TELEN 05-19 01:01
PROVIDERS: ADMIT Internal Medicine; ATTEND Internal Medicine

== ENCOUNTER 2021-05-20 17:15 | Observation (INO) ==
[2021-05-20] MEDS ORDERED: SODIUM CHLORIDE 0.9% 1,000 ML IV STA (17:52)
[2021-05-20] MEDS ORDERED: LORazepam 2 MG/1 ML VIAL IV STA (17:52)
[2021-05-20] MEDS ORDERED: LORazepam 2 MG/1 ML VIAL ONE (17:54)
[2021-05-20 18:38] LABS: Basophils % 0.3 % (0.0-0.8); Eosinophils # 0.1 10*3/uL (0.0-0.87); Eosinophils % 0.3 % (0.00-10.9); Hematocrit 43.5 VOL% (42.0-52.0); Hemoglobin 15.4 GM/DL (14.0-18.0); Immature Granulocytes % 0.8 %; Immature Granulocytes Absolute 0.11 #; Lymphocytes # 2.5 10*3/uL (1.4-4.0); Lymphocytes % 16.8 % (21.2-54.2); Mean Corpuscular HGB Conc 35.4 GM/DL (32-36); Mean Platelet Volume 9.6 FL (9.6-12.0); Monocytes # 1.1 10*3/uL (0.11-0.8); Monocytes % 7.5 % (1.7-12.7); Neutrophils % 74.3 % (38.7-73.9); Platelet Count 417 T/CUMM (130-400); Red Blood Count 5.18 MC/CUMM (3.8-5.5); White Blood Count 14.6 T/CUMM (4-12)
[2021-05-20 18:46] LABS: INR 0.9; PT Patient Result 10.5 SECS (10.5-12.0); Partial Thromboplastin Time 26.1 SECS (23.8-32.1)
[2021-05-20 18:52] LABS: Alanine Aminotransferase 130 U/L (16-61); Albumin 3.7 G/DL (3.4-5.0); Alkaline Phosphatase 158 U/L (45-117); Aspartate Amino Transferase 55 U/L (0-37); Bilirubin,Total < 0.39 MG/DL (0.20-1.00); Blood Urea Nitrogen 11 MG/DL (7-18); CKMB % 1.4 %; Calcium 10.2 MG/DL (8.5-10.1); Carbon Dioxide 23 MMOL/L (21-32); Chloride 104 MMOL/L (98-107); Estimated Glom Filtration Rate 89 ML/MIN; Glucose 105 MG/DL (74-106); High Sensitive Troponin I* 10.6 ng/L (0-78); Osmolality,Calculated 275.5 MOS/KG (273-304); Potassium 3.9 MMOL/L (3.5-5.1); Sodium 139 MMOL/L (136-145); Total Protein 7.9 G/DL (6.4-8.2)
[2021-05-20 20:24] LABS: Calcium Oxalate Crystals,Urine Occasional /HPF (Few); Hyaline Casts,Urine 3 /LPF (0-3); Mucus,Urine Moderate /LPF (Occasional); RBC,Urine 2 /HPF (0-4)
[2021-05-20 20:30] LABS: Bilirubin,Urine Negative (Negative); Blood, Urine Negative (Negative); Glucose,Urine (UA) Negative (Negative); Ketones,Urine Negative (Negative); Nitrite,Urine Negative (Negative); Protein,Urine Trace mg/dL (Negative); Urine Appearance Clear (Clear); Urine Color Yellow (Yellow); Urine Specific Gravity 1.026 (1.001-1.035); Urine Urobilinogen 0.2 eU/dL (<2.0)
[2021-05-20 20:32] LABS: Barbiturates Screen,Urine Negative (Negative); Benzodiazepines Screen,Urine Negative (Negative); Cannabinoid Screen,Urine Positive (Negative); Opiate Screen,Urine Negative (Negative); Phencyclidine Screen,Urine Negative (Negative)
[2021-05-20] MEDS ORDERED: GLUCAGON 1 MG VIAL IM PRN (22:06)
[2021-05-20] MEDS ORDERED: ACETAMINOPHEN 325 MG TABLET PO PRN (22:11)
[2021-05-20] MEDS ORDERED: ONDANSETRON 4 MG/2 ML VIAL IV PRN (22:11)
[2021-05-20] MEDS ORDERED: hydrALAZINE 20 MG/1 ML VIAL IV PRN (22:11)
[2021-05-20] MEDS ORDERED: SIMETHICONE CHEW 125 MG TABLET PO PRN (22:11)
[2021-05-20] MEDS ORDERED: DEXTROSE 10% 250 ML BAG IV PRN (22:18)
[2021-05-20] MEDS: ENOXAPARIN 40 MG/0.4 ML SYRINGE SUBCUT SCH (22:32)
[2021-05-21] MEDS ORDERED: SODIUM CHLORIDE 0.9% 1,000 ML IV SCH (01:30)
[2021-05-21] MEDS ORDERED: cefTRIAXone 1,000 MG in SODIUM CHLORIDE 0.9% 100 ML IV SCH (02:00)
[2021-05-21 04:21] LABS: Basophils % 0.2 % (0.0-0.8); Eosinophils # 0.1 10*3/uL (0.0-0.87); Eosinophils % 0.6 % (0.00-10.9); Hematocrit 36.5 VOL% (42.0-52.0); Hemoglobin 12.9 GM/DL (14.0-18.0); Immature Granulocytes % 0.4 %; Immature Granulocytes Absolute 0.05 #; Lymphocytes # 2.5 10*3/uL (1.4-4.0); Lymphocytes % 20.4 % (21.2-54.2); Mean Corpuscular HGB Conc 35.3 GM/DL (32-36); Mean Corpuscular Volume 83.9 FL (87-102); Mean Platelet Volume 9.3 FL (9.6-12.0); Monocytes # 0.9 10*3/uL (0.11-0.8); Monocytes % 7.3 % (1.7-12.7); Neutrophils % 71.1 % (38.7-73.9); Platelet Count 291 T/CUMM (130-400); Red Blood Count 4.35 MC/CUMM (3.8-5.5); Red Cell Distribution Width 13.1 % (9.3-17.3); White Blood Count 12.2 T/CUMM (4-12)
[2021-05-21 04:37] LABS: Albumin 2.7 G/DL (3.4-5.0); Bilirubin,Total 0.4 MG/DL (0.20-1.00); Calcium 9.2 MG/DL (8.5-10.1); Osmolality,Calculated 278.4 MOS/KG (273-304); Potassium 3.3 MMOL/L (3.5-5.1); Total Protein 6.3 G/DL (6.4-8.2)
[2021-05-21] MEDS: carvediloL 6.25 MG TABLET PO SCH ×2 (08:57→21:07)
[2021-05-21] MEDS: DOCUSATE SODIUM 100 MG CAPSULE PO SCH ×2 (08:57→21:07)
[2021-05-21] MEDS: ASPIRIN EC 81 MG TABLET PO SCH (08:57)
[2021-05-21] MEDS: SACUBITRIL/VALSARTAN 49-51 MG TABLET PO SCH ×2 (08:57→21:07)
[2021-05-21] MEDS: PANTOPRAZOLE 40 MG TABLET PO SCH (08:58)
[2021-05-21] MEDS ORDERED: LORazepam 2 MG/1 ML VIAL IV STA (13:18)
[2021-05-21] MEDS ORDERED: POTASSIUM CHLORIDE 20 MEQ TABLET PO ONE (13:45)
[2021-05-21] MEDS ORDERED: LORazepam 2 MG/1 ML VIAL IV PRN (13:54)
[2021-05-21] MEDS: ENOXAPARIN 40 MG/0.4 ML SYRINGE SUBCUT SCH (21:51)
[2021-05-22] MEDS ORDERED: POTASSIUM CHLORIDE 20 MEQ TABLET PO ONE ×2 (08:25→10:22)
[2021-05-22] MEDS: SACUBITRIL/VALSARTAN 49-51 MG TABLET PO SCH ×2 (09:12→20:43)
[2021-05-22 09:13] LABS: Basophils % 0.3 % (0.0-0.8); Eosinophils # 0.1 10*3/uL (0.0-0.87); Eosinophils % 0.9 % (0.00-10.9); Hematocrit 40.7 VOL% (42.0-52.0); Immature Granulocytes % 0.3 %; Immature Granulocytes Absolute 0.02 #; Lymphocytes # 1.7 10*3/uL (1.4-4.0); Lymphocytes % 23.5 % (21.2-54.2); Mean Corpuscular HGB Conc 34.4 GM/DL (32-36); Mean Corpuscular Volume 85.9 FL (87-102); Mean Platelet Volume 9.2 FL (9.6-12.0); Monocytes # 0.6 10*3/uL (0.11-0.8); Monocytes % 7.6 % (1.7-12.7); Neutrophils % 67.4 % (38.7-73.9); Platelet Count 282 T/CUMM (130-400); Red Blood Count 4.74 MC/CUMM (3.8-5.5); Red Cell Distribution Width 13.2 % (9.3-17.3); White Blood Count 7.4 T/CUMM (4-12)
[2021-05-22] MEDS: PANTOPRAZOLE 40 MG TABLET PO SCH (09:13)
[2021-05-22] MEDS: carvediloL 6.25 MG TABLET PO SCH ×2 (09:13→20:43)
[2021-05-22] MEDS: ASPIRIN EC 81 MG TABLET PO SCH (09:13)
[2021-05-22] MEDS: DOCUSATE SODIUM 100 MG CAPSULE PO SCH ×2 (09:13→20:43)
[2021-05-22 09:41] LABS: Albumin 2.8 G/DL (3.4-5.0); Bilirubin,Total 1.4 MG/DL (0.20-1.00); Calcium 8.9 MG/DL (8.5-10.1); Osmolality,Calculated 282.1 MOS/KG (273-304); Potassium 3.4 MMOL/L (3.5-5.1); Total Protein 6.4 G/DL (6.4-8.2)
[2021-05-23] MEDS: ENOXAPARIN 40 MG/0.4 ML SYRINGE SUBCUT SCH (00:09)
[2021-05-23 04:47] LABS: Basophils % 0.4 % (0.0-0.8); Eosinophils # 0.1 10*3/uL (0.0-0.87); Eosinophils % 1.1 % (0.00-10.9); Hematocrit 39.5 VOL% (42.0-52.0); Hemoglobin 13.3 GM/DL (14.0-18.0); Immature Granulocytes % 0.2 %; Immature Granulocytes Absolute 0.02 #; Lymphocytes # 2.4 10*3/uL (1.4-4.0); Lymphocytes % 28.3 % (21.2-54.2); Mean Corpuscular HGB Conc 33.7 GM/DL (32-36); Mean Corpuscular Volume 87.4 FL (87-102); Mean Platelet Volume 9.4 FL (9.6-12.0); Monocytes # 0.7 10*3/uL (0.11-0.8); Monocytes % 8.3 % (1.7-12.7); Neutrophils % 61.7 % (38.7-73.9); Platelet Count 278 T/CUMM (130-400); Red Blood Count 4.52 MC/CUMM (3.8-5.5); Red Cell Distribution Width 13.2 % (9.3-17.3); White Blood Count 8.5 T/CUMM (4-12)
[2021-05-23 05:07] LABS: Albumin 2.6 G/DL (3.4-5.0); Bilirubin,Total 0.5 MG/DL (0.20-1.00); Calcium 8.6 MG/DL (8.5-10.1); Potassium 3.5 MMOL/L (3.5-5.1); Total Protein 6.3 G/DL (6.4-8.2)
[2021-05-23] MEDS: carvediloL 6.25 MG TABLET PO SCH (09:39)
[2021-05-23] MEDS: PANTOPRAZOLE 40 MG TABLET PO SCH (09:39)
[2021-05-23] MEDS: DOCUSATE SODIUM 100 MG CAPSULE PO SCH (09:39)
[2021-05-23] MEDS: SACUBITRIL/VALSARTAN 49-51 MG TABLET PO SCH (09:39)
[2021-05-23] MEDS: ASPIRIN EC 81 MG TABLET PO SCH (09:39)
[2021-05-23 11:41] VITALS: BP 129/89
== END 2021-05-23 12:20 | disposition home or self-care (01) ==
LOC: N.EDINP 17:15 → N.ED 17:15 → N.5E 05-21 16:09 → N.3E 05-21 17:16
PROVIDERS: ADMIT Internal Medicine; ATTEND Internal Medicine

== ENCOUNTER 2022-04-13 23:40 | Observation (INO) ==
[2022-04-14] MEDS ORDERED: NITROGLYCERIN 2% OINT 1 INCH/GM PACK TOP STA (00:14)
[2022-04-14] MEDS ORDERED: ONDANSETRON 4 MG/2 ML VIAL IV STA (00:14)
[2022-04-14] MEDS ORDERED: ASPIRIN 325 MG TABLET PO STA (00:14)
[2022-04-14 00:36] LABS: Basophils % 0.4 % (0.0-0.8); Eosinophils # 0.2 10*3/uL (0.0-0.87); Eosinophils % 1.6 % (0.00-10.9); Hematocrit 45.9 VOL% (42.0-52.0); Hemoglobin 15.5 GM/DL (14.0-18.0); Immature Granulocytes % 0.4 %; Immature Granulocytes Absolute 0.04 #; Mean Corpuscular HGB Conc 33.8 GM/DL (32-36); Mean Corpuscular Volume 85.6 FL (87-102); Mean Platelet Volume 8.9 FL (9.6-12.0); Monocytes % 9.2 % (1.7-12.7); Neutrophils % 60.4 % (38.7-73.9); Platelet Count 426 T/CUMM (130-400); Red Blood Count 5.36 MC/CUMM (3.8-5.5); Red Cell Distribution Width 14.3 % (9.3-17.3); White Blood Count 10.52 T/CUMM (4-12)
[2022-04-14 00:49] LABS: INR 0.9; PT Patient Result 10.1 SECS (10.1-12.1)
[2022-04-14 00:59] LABS: Acetaminophen < 2.0 UG/ML (10-30); Salicylate < 2.8 MG/DL (2.8-20)
[2022-04-14] MEDS ORDERED: ONDANSETRON 4 MG TABLET PO ONE (00:59)
[2022-04-14 01:00] LABS: Alanine Aminotransferase 73 U/L (16-61); Albumin 3.6 G/DL (3.4-5.0); Alkaline Phosphatase 186 U/L (45-117); Aspartate Amino Transferase 37 U/L (0-37); Bilirubin,Total < 0.39 MG/DL (0.20-1.00); Blood Urea Nitrogen 14 MG/DL (7-18); Calcium 9.3 MG/DL (8.5-10.1); Carbon Dioxide 25 MMOL/L (21-32); Chloride 107 MMOL/L (98-107); Glucose 112 MG/DL (74-106); Osmolality,Calculated 280.4 MOS/KG (273-304); Potassium 3.7 MMOL/L (3.5-5.1); Sodium 140 MMOL/L (136-145); Total Protein 8.3 G/DL (6.4-8.2)
[2022-04-14] MEDS ORDERED: ONDANSETRON ODT 4 MG TABLET PO ONE (01:15)
[2022-04-14 02:44] LABS: Barbiturates Screen,Urine Negative (Negative); Benzodiazepines Screen,Urine Negative (Negative); Cannabinoid Screen,Urine Positive (Negative); Mucus,Urine Occasional /LPF (Occasional); Opiate Screen,Urine Negative (Negative); Phencyclidine Screen,Urine Negative (Negative); RBC,Urine 2 /HPF (0-4)
[2022-04-14 02:45] LABS: Bilirubin,Urine Negative (Negative); Blood, Urine Trace mg/dL (Negative); Glucose,Urine (UA) Negative (Negative); Ketones,Urine Negative (Negative); Nitrite,Urine Negative (Negative); Protein,Urine Negative (Negative); Urine Appearance Clear (Clear); Urine Color Yellow (Yellow); Urine Specific Gravity 1.025 (1.001-1.035); Urine Urobilinogen 0.2 eU/dL (<2.0); Urine pH 5.5 (4.5-8.0)
[2022-04-14] MEDS ORDERED: ACETAMINOPHEN 500 MG TABLET PO STA (03:04)
[2022-04-14] MEDS ORDERED: ACETAMINOPHEN 500 MG TABLET ONE (03:04)
[2022-04-14] MEDS ORDERED: ONDANSETRON 4 MG/2 ML VIAL IV PRN (07:33)
[2022-04-14] MEDS ORDERED: DOCUSATE SODIUM 100 MG CAPSULE PO PRN (07:33)
[2022-04-14] MEDS: SODIUM CHLORIDE 0.45% 1,000 ML IV SCH ×3 (08:35→20:30)
[2022-04-14] MEDS ORDERED: PNEUMOCOCCAL VACCINE (20 VALENT) 0.5 ML SYRINGE IM ONE (09:26)
[2022-04-14] MEDS ORDERED: INFLUENZA VIRUS VACCINE 0.5 ML SYRINGE IM ONE (09:26)
[2022-04-14] MEDS: NICOTINE 21 MG/24 HR PATCH TRANSDERM SCH (12:31)
[2022-04-14] MEDS: FUROSEMIDE 40 MG TABLET PO SCH (16:37)
[2022-04-14] MEDS: carvediloL 12.5 MG TABLET PO SCH (20:22)
[2022-04-14] MEDS: ACETAMINOPHEN 325 MG TABLET PO PRN (20:22)
[2022-04-14] MEDS: SACUBITRIL/VALSARTAN 49-51 MG TABLET PO SCH (21:12)
[2022-04-15 05:50] LABS: Calcium 9.3 MG/DL (8.5-10.1); Osmolality,Calculated 277.5 MOS/KG (273-304); Potassium 3.7 MMOL/L (3.5-5.1)
[2022-04-15] MEDS ORDERED: POTASSIUM CHLORIDE 20 MEQ TABLET PO SCH (09:00)
[2022-04-15] MEDS: FUROSEMIDE 40 MG TABLET PO SCH (09:38)
[2022-04-15] MEDS: SACUBITRIL/VALSARTAN 49-51 MG TABLET PO SCH (09:38)
[2022-04-15] MEDS: carvediloL 12.5 MG TABLET PO SCH (09:38)
[2022-04-15] MEDS: NICOTINE 21 MG/24 HR PATCH TRANSDERM SCH (09:43)
[2022-04-15] MEDS: ACETAMINOPHEN 325 MG TABLET PO PRN (11:22)
[2022-04-15 11:43] VITALS: BP 119/70
== END 2022-04-15 15:16 ==
LOC: N.EDINP 23:40 → N.ED 23:40 → SUATTDRO 04-14 07:33 → N.2W 04-14 11:51
PROVIDERS: ADMIT Internal Medicine; ATTEND Internal Medicine